=== PATIENT | male | born 1945 | race Caucasian/White ===

== ENCOUNTER 2018-04-07 05:32 | Observation (INO) | payer BC, MEDICARE ==
--- NOTE | 2018-03-27 20:18 | HP ---
HISTORY AND PHYSICAL: DATE OF ADMISSION/SURGERY: 04/07/18 DATE OF OFFICE VISIT: 03/27/18 SURGEON: Yojana Jain MD.* (DICTATED BY BHARATHI ALEXANDRA) PROCEDURE: Left total knee arthroplasty. CHIEF COMPLAINT: Left knee pain. HISTORY OF PRESENT ILLNESS: Mr. Feng is a 72-year-old gentleman with continued complaints of left knee pain. He has failed conservative treatment and elected to proceed with a left total knee arthroplasty. PAST MEDICAL HISTORY: Hiatal hernia and GERD. PAST SURGICAL HISTORY: Left shoulder surgery, cataract removal, and left knee arthroscopy x2. CURRENT MEDICATIONS: 1. Proctocare. 2. Gaviscon. ALLERGIES: No known drug allergies. FAMILY HISTORY: Denies. SOCIAL HISTORY: A 72-year-old, lives with his . Does not smoke or use drugs. Uses occasional alcohol. REVIEW OF SYSTEMS: A complete 14-point review of systems was reviewed with the patient. It was positive for GERD. He denies history of DVT, PE, hepatitis, HIV , or anesthesia problems. PHYSICAL EXAMINATION GENERAL: He is well developed, well nourished, in no acute distress. VITAL SIGNS: He stands 74 inches tall, weighs 175 pounds. Blood pressure 124/ 73, heart rate is 82. HEENT: Normocephalic, atraumatic. NECK: Supple. No palpable lymph nodes. PULMONARY: The lungs are clear to auscultation bilaterally. CARDIO: Regular rate and rhythm. Strong S1, S2. ABDOMEN: Soft, nontender, nondistended. NEUROLOGICAL: He is alert and oriented x3. MUSCULOSKELETAL: Left lower extremity: The skin is intact. There are no open wounds or abrasions. There is a [id number] joint effusion of the left knee. Range of motion is 5 to 125 degrees of flexion with significant patellofemoral crepitus. He has a 2+ dorsalis pedis pulse, intact sensation. His lower extremity muscle group strengths are intact at 5/5. ASSESSMENT AND PLAN: Mr. Feng is a 72-year-old gentleman with end-stage osteoarthritis of the left knee. He has failed conservative treatment and elected to proceed with a left total knee arthroplasty. Surgery is scheduled for 04/07/[address] Jain discussed the risks and benefits of the surgery at today's visit and all of his questions were answered. He will follow up with Dr. Jain 2 weeks after the surgery. BHARATHI ALEXANDRA [id number]/[facility] #: [id number] [facility]
[~2018-04-07 05:32] MED LIST: Buffered Lidocaine 1% SYRIN* 1 ML/SYRINGE INTRADERM ONE
[2018-04-07] MEDS ORDERED: Bupivacaine 0.5% PF 10 ML VIAL INJ ONE (05:33)
[2018-04-07] MEDS ORDERED: ceFAZolin 2 GM PREMIX in ORs 2 GM/50 ML BAG IVPB ONE (05:55)
[2018-04-07] MEDS ORDERED: Lactated Ringers 1000 ML Bag* 1,000 ML IV SCH ×2 (06:00→11:00)
[2018-04-07] MEDS ORDERED: Propofol* 10 MG/ML 20 ML BTL ONE (06:31)
[2018-04-07] MEDS ORDERED: Midazolam* 1 MG/ML 2 ML VIAL (2 MG) ONE (06:32)
[2018-04-07] MEDS ORDERED: fentaNYL* 50 MCG/ML 2 ML VIAL (100 MCG VIAL) ONE (06:32)
[2018-04-07] MEDS ORDERED: ROPIVACAINE 5 MG/ML 30 ML BTL (0.5%) ONE ×2 (06:32→07:53)
[2018-04-07] MEDS ORDERED: KETAMINE HCL* 50 MG/ML 10 ML VIAL ONE (06:32)
[2018-04-07] MEDS ORDERED: Lidocaine 2% PF * 5 ML VIAL ONE (06:32)
[2018-04-07] MEDS ORDERED: Propofol* 500 MG/50 ML BTL ONE (06:33)
[2018-04-07] MEDS ORDERED: Dexamethasone IV* 4 MG/ML 1 ML (4 MG) ONE (06:38)
[2018-04-07] MEDS ORDERED: Tranexamic Acid 1,000 MG in NS 0.9% 50 ML IV ONE (07:00)
[2018-04-07] MEDS ORDERED: Ondansetron INJ* 2 MG/ML VIAL IV PRN ×2 (09:10→10:20)
[2018-04-07] MEDS ORDERED: oxyCODONE TAB* 5 MG TAB PO PRN ×2 (09:10→10:20)
[2018-04-07] MEDS ORDERED: Acetaminophen IV 1GM/100ML * 1,000 MG/100 ML VIAL IVPB ONE (09:10)
[2018-04-07] MEDS ORDERED: Ketorolac INJ* 30 MG/ML 1 ML VIAL IV PRN (09:10)
[2018-04-07] MEDS ORDERED: Naloxone* 0.4 MG/ML 1 ML VIAL IV PRN (09:10)
[2018-04-07] MEDS ORDERED: HYDROmorphone INJ1* 1 MG/ML SYRINGE IV PRN (09:10)
[2018-04-07] MEDS ORDERED: diPHENhydraMINE IV* 50 MG/ML 1 ml VIAL (BENADRYL) IV PRN (10:20)
[2018-04-07] MEDS ORDERED: Morphine INJ* 2 MG/ML 1 ML SYRINGE (TWO MG - NEW SYRINGE VERSION) IV PRN (10:20)
[2018-04-07] MEDS ORDERED: oxyCODONE/Acetamin 5/325 MG* TAB PO PRN ×2 (10:20)
[2018-04-07] MEDS ORDERED: Magnesium Hydroxide LIQ* 30 ML UDC PO PRN (10:20)
[2018-04-07] MEDS ORDERED: Ondansetron TAB* 4 MG PO PRN (10:20)
[2018-04-07] MEDS ORDERED: Bisacodyl SUPP* 10 MG SUPP PR PRN (10:20)
[2018-04-07] MEDS ORDERED: Polyethylene Glycol 3350* 17 GM PACKET PO PRN (10:20)
[2018-04-07] MEDS ORDERED: Cyclobenzaprine TAB* 10 MG PO PRN (10:20)
[2018-04-07] MEDS ORDERED: Ketorolac INJ* 30 MG/ML 1 ML VIAL ONE (11:21)
[2018-04-07] MEDS ORDERED: Acetaminophen IV 1GM/100ML * 100 ML ONE (11:21)
[2018-04-07] MEDS ORDERED: oxyCODONE TAB* 5 MG TAB ONE (12:58)
[2018-04-07] MEDS: ceFAZolin 1 GM ADVAN(*) 1 GM in NS 0.9% 50 ML* 50 ML IVPB SCH ×2 (16:14→23:58)
[2018-04-07] MEDS: Acetaminophen TAB* 325 MG PO SCH (19:52)
[2018-04-07] MEDS: Docusate CAP* 100 MG PO SCH (22:05)
[2018-04-07] MEDS: Magnesium Hydroxide LIQ* 30 ML UDC PO SCH (22:37)
--- NOTE | 2018-04-07 23:00 | OP ---
DATE OF OPERATION: 04/07/18 - ROOM #341 DATE OF : 47 ATTENDING SURGEON: Yojana Jain MD COLLECTION TEAM LEAD: BHARATHI Timmons. Ms. Skaggs did help throughout the procedure with preparation of the leg, wound retraction, manipulation of the knee, and wound closure. ANESTHESIOLOGIST: Dr. Bernal. ANESTHESIA: Spinal. PRE-OP DIAGNOSIS: Severe end-stage degenerative osteoarthritis of the left knee joint. POST-OP DIAGNOSIS: Severe end-stage degenerative osteoarthritis of the left knee joint. OPERATIVE PROCEDURE: Left total knee arthroplasty. TOURNIQUET TIME: 53 minutes. COMPLICATIONS: None. ESTIMATED BLOOD LOSS: 200 cc. SPECIMEN: Bone and cartilage from the left knee joint sent to pathology. HARDWARE USED: This is cemented [employer] total knee arthroplasty hardware. Two packages of Simplex bone cement. For the femur, a left size 7 posterior stabilized Legion femoral component. For the tibia, a left size 7 Mirna II tibial baseplate. For the insert, a 9-mm posterior stabilized articular insert, size 7/8. For the patella, a size 38 3-peg all poly patella. BRIEF HISTORY/INDICATION: Mr. Feng is a 72-year-old gentleman with 6 months of significant left knee pain. Radiographs including x-ray and MRI confirmed significant arthritis in the knee. He failed conservative treatment with antiinflammatories, pain medication, intraarticular injection, and physical therapy. Due to continued pain and decreased quality of life, he elected to undergo left total knee arthroplasty. Informed consent was obtained from the patient. He understood the risk of surgery included but were not limited to bleeding, infection, damage to nearby structures, continued pain, need for further surgery, intraoperative fracture, nerve palsy, hardware failure or loosening, knee stiffness, loss of motion, stroke, heart attack, blood clot, and . He wished to proceed. INTRAOPERATIVE FINDINGS: Intraoperatively, the patient was noted to have significant cartilage loss in all three compartments with exposed subchondral bone. DESCRIPTION OF PROCEDURE: Mr. Feng was identified in the preanesthesia unit. His left lower extremity was marked as the correct operative site. Informed consent was signed and placed in the chart. The patient's left lower extremity was marked as the correct operative site. He was taken to the operating room and placed under anesthesia without complication. A Zapata catheter was placed. Tourniquet was placed on the left thigh. Left lower extremity was prepped and draped in the usual sterile fashion. Preop time-out was made to correctly identify the patient, side, and site. Appropriate perioperative antibiotics were given within 1 hour of incision. Tourniquet was inflated and the total tourniquet time for this procedure was 53 minutes. A midline incision was made with a 10-blade and carried down to the extensor mechanism. A new 10-blade was used to make a standard medial parapatellar arthrotomy. Patella was subluxed laterally. Electrocautery was used to subperiosteally elevate the soft tissue off the superomedial tibia to the mid sagittal plane. The knee was flexed up. The anterior horn of the lateral meniscus and ACL were sharply released. A drill was used to enter the distal femur. Intramedullary distal femoral cutting guide was pinned on the distal femur. Oscillating saw was used to make the distal femoral cut. Next, the external rotation guide was pinned on the distal femur. The distal femur was sized to a size 7. Size 7 multi-cutting jig was pinned on the distal femur. Oscillating saw was used to make the appropriate 4 chamfer cuts. Next, the PCL was completely released. Extramedullary tibial cutting guide was pinned on the proximal tibia. The oscillating saw was used to make the proximal tibial cut perpendicular to the mechanical axis of the tibia. The bone was carefully removed. The knee was brought out into full extension. Medial and lateral ligaments were well balanced. Flexion and extension gaps were well balanced. The knee was flexed up. A Lamina credentialer was placed both medially and laterally. Any remaining meniscus was carefully removed using electrocautery. Curved osteotome was used to remove any posterior osteophytes. Tibial tray and drop ramya were placed and once again confirmed a satisfactory tibial cut. A size 7 left femoral trial was impacted onto the distal femur. This trial had excellent fit and stability. The box for the posterior stabilized implant was prepared using a reamer and box cut osteotome. A size 7 tibial trial with a 9-mm insert trial was placed and the knee was taken through range of motion. The knee had full extension to 130 degrees of flexion with satisfactory patellofemoral traction. The patella was everted. A 9-mm of patellar bone and cartilage was carefully removed using an oscillating saw. The patella was sized to a size 38. Three peg holes were drilled through the size 38 guide. A 38 trial patella was placed and the knee was taken through range of motion. There was satisfactory patellofemoral tracking. All trials were removed. The tibia was subluxed anteriorly and sized to a size 7. Proximal tibia was prepared using a size 7 keel punch. All bony cut surfaces were copiously irrigated with sterile saline and dried. Final implants were cemented into place starting with the tibia, followed by the femur, and lastly the patella. A 9-mm insert trial was placed and the knee was taken through range of motion. The knee was brought into full extension. Tourniquet was turned down at 53 minutes. The knee was copiously irrigated with sterile saline. Electrocautery was used to obtain meticulous hemostasis. Once the cement had fully cured, the insert trial was removed. Any excess cement was removed from around the capsule and hardware. Final insert chosen was a size 7/ 8, 9-mm posterior stabilized articular insert, locked into position on the tibial tray. Stability of the insert was checked and rechecked and noted to be stable. The extensor mechanism was closed using interrupted #1 Vicryls. The rest of the incision was closed in a layered fashion using 0 and 2-0 Vicryls. Skin was closed using running 3-0 nylon suture. Sterile Xeroform, 4x4s, and Webril were used to cover the incision. Navin wrap and cold pack were placed over this. The patient's anesthesia was reversed without difficulty. He was taken to the PACU in stable condition. Intended weightbearing will be weightbearing as tolerated. Intended DVT prophylaxis will be Eliquis. [id number]/[facility] #: [id number] [facility] HOSPITALGris
[2018-04-08] MEDS: traMADol TAB* 50 MG PO PRN ×3 (00:02→12:12)
[2018-04-08] MEDS: Acetaminophen TAB* 325 MG PO SCH ×2 (03:23→12:11)
[2018-04-08 07:07] LABS: Hematocrit 36 % (42-52); Hemoglobin 12.5 g/dl (14.0-18.0); Mean Platelet Volume 9.8 fL (7.4-10.4); Platelet Count 141 10^3/ul (150-450)
[2018-04-08 07:24] LABS: BUN/Creatinine Ratio 20.8 (8-20); Calcium 8.7 mg/dL (8.6-10.3); EGFR African American 93.4 (>60); EGFR Non-African American 77.2 (>60); Potassium 4.4 mmol/L (3.5-5.0)
[2018-04-08] MEDS: ceFAZolin 1 GM ADVAN(*) 1 GM in NS 0.9% 50 ML* 50 ML IVPB SCH (08:06)
[2018-04-08] MEDS ORDERED: Apixaban* 2.5 MG TAB PO SCH (09:00)
--- NOTE | 2018-04-08 09:31 | PN ---
Progress Note - Progress Note Date of Service: 04/08/18 SOAP: Subjective: []Pt seen and examined at bedside. He feels very well and desires DC home. His knee pain is well controlled. Denies CP, SOB, dizziness, nausea, hx dvt. Objective: []General: Well appearing, NAD LLE: Left knee dressing CDI, cryo cuf in use, thigh soft, df/pf intact, sensation intact to light touch distally, DP2+, cap refill less than two seconds distally Calves supple and nontender without erythema, edema or palpable cords Assessment: []POD [address] Plan: []WBAT PT/OT eliquis 2.5 mg po BID x 30 days DC to home today as long as PT goals met. Will change dressing prior to DC Vital Signs Temp 98.3 F 04/08/18 07:33 Pulse 56 04/08/18 07:33 Resp 18 04/08/18 07:38 BP 128/63 04/08/18 07:33 Pulse Ox 100 04/08/18 07:33 Intake & Output 04/07/18 04/08/18 04/08/18 18:59 06:59 18:59 Intake Total 1000 2012 1502 Output Total 550 850 Balance 450 1162 1502 Intake: IV Fluids 1000 997 852 ABX - CEFAZOLIN 53 LR 1000 944 852 IVPB 50 ABX - CEFAZOLIN 50 Oral 1015 600 Output: Urine 300 Zapata 550 550 Laboratory Last Values Hgb 12.5 g/dl (14.0-18.0) L 04/08/18 06:50 Hct 36 % (42-52) L 04/08/18 06:50 Plt Count 141 10^3/ul (150-450) L 04/08/18 06:50 MPV 9.8 fL (7.4-10.4) 04/08/18 06:50 Sodium 137 mmol/L (135-145) 04/08/18 06:50 Potassium 4.4 mmol/L (3.5-5.0) 04/08/18 06:50 Chloride 106 mmol/L (101-111) 04/08/18 06:50 Carbon Dioxide 27 mmol/L (22-32) 04/08/18 06:50 Anion Gap 4 mmol/L (2-11) 04/08/18 06:50 BUN 20 mg/dL (6-24) 04/08/18 06:50 Creatinine 0.96 mg/dL (0.67-1.17) 04/08/18 06:50 Est GFR ( Amer) 93.4 (>60) 04/08/18 06:50 Est GFR (Non-Af Amer) 77.2 (>60) 04/08/18 06:50 BUN/Creatinine Ratio 20.8 (8-20) H 04/08/18 06:50 Glucose 107 mg/dL (70-100) H 04/08/18 06:50 Calcium 8.7 mg/dL (8.6-10.3) 04/08/18 06:50
[2018-04-08] MEDS: Magnesium Hydroxide LIQ* 30 ML UDC PO SCH (09:54)
[2018-04-08] MEDS: Docusate CAP* 100 MG PO SCH (09:54)
[2018-04-08 14:03] VITALS: BP 123/63
--- NOTE | 2018-04-08 15:04 | DS ---
AMENDED REPORT NOW INCLUDES COSIGNER DESIGNATION AND DATE OF DISCHARGE DISCHARGE SUMMARY: DATE OF ADMISSION: 04/07/18 DATE OF DISCHARGE: 04/08/18 PROVIDER: Dr. Yojana Jain.* (DICTATED BY BHARATHI PAUL) PREOPERATIVE DIAGNOSIS: Severe end-stage degenerative osteoarthritis of the left knee joint. OPERATIVE PROCEDURE: Left total knee arthroplasty. HISTORY: Mr. Feng is a 72-year-old gentleman with 6 months of significant left knee pain. Radiographs show significant arthritis of the left knee. He failed conservative management and elected to undergo a left total knee arthroplasty. HOSPITAL COURSE: The patient was admitted to [facility] on . He underwent a left total knee arthroplasty without complication. Postop day 1, he was well appearing, in no acute distress. Left knee dressing was changed. Incision clean, dry, and intact. Anterior escobedo with mild abrasions without any drainage or erythema. Antibiotic ointment was applied with Band- Aids over top. Dorsiflexion and plantarflexion intact. Sensation intact to light touch distally. DP pulse 2+. Vital Signs: Temperature 98.3, pulse 56, respiratory rate 18, blood pressure 120/63, pulse ox 100%. Hemoglobin 12.5, hematocrit 36. Sodium 137, potassium 4.4. The patient was deemed to be medically and orthopedically stable for discharge home. DISCHARGE MEDICATIONS: 1. Gaviscon 80/14.2 b.i.d. p.r.n. 2. Acetaminophen 975 q.8 p.r.n. 3. Eliquis 2.5 mg p.o. b.i.d. for 30 days. 4. Docusate 100 mg p.o. b.i.d. for constipation p.r.n. 5. Tramadol 50 mg 1 to 2 tabs every 6 hours as needed for pain, max daily dose of 8. DISCHARGE PLAN: Weightbearing as tolerated. Discharge to home. Antibiotic and Band-Aid to abrasions on escobedo until healed. Okay to shower postop day 3, change knee dressing daily with dry gauze and Navin wrap. Eliquis 2.5 mg twice daily for 1 month for DVT prophylaxis. Pain control with tramadol 50 mg 1 to 2 tabs every 6 hours as needed for pain, max of 8 tabs per day. Follow up with Dr. Jain in 10 to 14 days. BHARATHI MANCIA [id number]/[facility] #: [id number] [facility] CENTERGris
== END 2018-04-08 15:23 | disposition home or self-care (01) ==
LOC: OR 05:32 → SSU 14:18
PROVIDERS: ADMIT Orthopaedic Surgery Adult Reconstructive Orthopaedic Surgery; ATTEND Orthopaedic Surgery Adult Reconstructive Orthopaedic Surgery
DX: M17.12 Unilateral primary osteoarthritis, left knee (principal); M25.562 Pain in left knee; K21.9 Gastro-esophageal reflux disease without esophagitis; K44.9 Diaphragmatic hernia without obstruction or gangrene
CPT/HCPCS: 36415; 80048; 85014; 85018; 85049; 90686; 96374; A9270-GY; C1776; G0378; J0690; J1100; J1885; J2250; J2704; J2795; J3010

== ENCOUNTER 2018-04-11 15:10 | Inpatient (IN) | payer MEDICARE, BC ==
--- OUTSIDE RECORDS SUMMARY | 2018-04-11 15:25 | XMS REPORT | Continuity of Care Document ---
:1945 External Reference #:[id number] Author Name Irma Monson Care Team Providers Name Role Phone Joe Vallejo MD Primary Care Physician Unavailable Payers Type Date Identification Numbers Payment Provider Subscriber Policy Number: [id number] BS Fep William Francois Group Number: [id number] [address] Group Name: [id number] [place] [address] PayID: [id number] Advance Directives Description No Information Available Problems Date Description Provider Status Onset: 05/23/2010 Hyperlipidemia Joe Vallejo M.D. Active Onset: 12/15/2012 Gastroesophageal reflux disease Joe Vallejo M.D. Active Onset: 12/15/2012 Chest pain Joe Vallejo M.D. Active Onset: 12/30/2012 Electrocardiogram abnormal Gabriel Raymond M.D. Onset: 01/25/2014 Impacted cerumen Joe Vallejo M.D. Active Onset: 07/04/2014 Headache Joe Vallejo M.D. Active Onset: 07/04/2014 Infectious mononucleosis Joe Vallejo M.D. Active Onset: 12/08/2017 Localized, primary osteoarthritis Yojana Jain M.D. 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 movement Gaviscon Active Chewtabs 80-14.2mg 30unit one tab Unknown 000 s prn Proctofoam HC Hx Foam 1-1% 1units apply K64.0 [place] 015 - daily P[place]ikara, after M.D. 015 bowel movement x 10 days Omeprazole Hx Capsules 20mg 30caps 1 po qd am 530.81 Joe 013 - DR empty [place], stomach M.D. 014 Pain Reliever Hx Tablets 25-500mg Unknown PM Extra 000 - Strength 018 Medications Administered in Office Medication Date Status Form Strength Qnty SIG Indications Ordering Provider Depomedrol Administered Injection Yojana 40MG 018 Jailyn Jain Immunizations CPT Code Status Date Vaccine Lot # [id number] Given 04/11/2016 Pneumococcal Conjugate Vaccine 13 Valent For [id number] Intramuscular Use 36904 Given 01/31/2015 Influenza Virus Vaccine, Quadrivalent, Split, [id number] Preservative Free 55061 Given 01/26/2013 Zoster (Zostavax) [id number] 10447 Given 01/26/2013 Pneumonia Vaccine [id number] 45463 Given 12/15/2012 Flu Vaccine Split Virus Preservative Free For [id number] Indiv 3Yr Older 12280 Given 09/04/2010 Tdap - Tetanus/Diptheria/Acellular Pertussis [id number] Vital Signs Date Vital Result Comment 03/24/2018 10:15am Height 74 inches 6'2" Weight 171.00 lb Heart Rate 73 /min BP Systolic Sitting 130 mmHg BP Diastolic Sitting 76 mmHg O2 % BldC Oximetry 97 % BMI (Body Mass Index) 22.0 kg/m2 02/18/2018 11:39am Height 74 inches 6'2" Weight 175.00 lb BP Systolic 122 mmHg BP Diastolic 69 mmHg Respiratory Rate 16 /min Pain Level 3 BMI (Body Mass Index) 22.5 kg/m2 01/19/2018 11:36am Height 74 inches 6'2" Heart Rate 64 /min BP Systolic 126 mmHg BP Diastolic 70 mmHg Body Temperature 98.2 F Pain Level 4 12/19/2017 3:18pm Height 74 inches 6'2" Weight 174.00 lb Heart Rate 77 /min Respiratory Rate 17 /min Pain Level 5 BMI (Body Mass Index) 22.3 kg/m2 12/08/2017 2:42pm Height 74 inches 6'2" Weight 174.50 lb Heart Rate 74 /min BP Systolic 128 mmHg BP Diastolic 68 mmHg Respiratory Rate 18 /min Body Temperature 97.6 F Pain Level 8 BMI (Body Mass Index) 22.4 kg/m2 11/24/2017 1:04pm Height 74 inches 6'2" Weight 176.00 lb Heart Rate 74 /min BP Systolic 140 mmHg BP Diastolic 80 mmHg O2 % BldC Oximetry 98 % BMI (Body Mass Index) 22.6 kg/m2 05/05/2017 4:40pm Height 74 inches 6'2" Weight 176.00 lb Heart Rate 80 /min BP Systolic 140 mmHg BP Diastolic 80 mmHg Body Temperature 98.4 F O2 % BldC Oximetry 98 % BMI (Body Mass Index) 22.6 kg/m2 04/11/2016 9:11am Height 74 inches 6'2" Weight 179.00 lb Heart Rate 72 /min BP Systolic Sitting 142 mmHg BP Diastolic Sitting 72 mmHg Body Temperature 96.4 F O2 % BldC Oximetry 99 % BMI (Body Mass Index) 23.0 kg/m2 02/14/2015 8:09am Height 74 inches 6'2" Weight 171.38 lb Heart Rate 70 /min BP Systolic Sitting 122 mmHg BP Diastolic Sitting 70 mmHg Body Temperature 95.9 F O2 % BldC Oximetry 98 % BMI (Body Mass Index) 22.0 kg/m2 01/31/2015 9:59am Height 74 inches 6'2" Weight 173.00 lb Heart Rate 80 /min BP Systolic Sitting 145 mmHg BP Diastolic Sitting 78 mmHg Body Temperature 97.6 F O2 % BldC Oximetry 98 % BMI (Body Mass Index) 22.2 kg/m2 07/04/2014 1:53pm Height 73.5 inches 6'1.50" Weight 174.25 lb Heart Rate 76 /min BP Systolic Sitting 158 mmHg BP Diastolic Sitting 80 mmHg Body Temperature 98.7 F O2 % BldC Oximetry 98 % BMI (Body Mass Index) 22.7 kg/m2 01/25/2014 8:51am Height 73.5 inches 6'1.50" Weight 173.00 lb Heart Rate 78 /min BP Systolic Sitting 118 mmHg BP Diastolic Sitting 70 mmHg BMI (Body Mass Index) 22.5 kg/m2 01/26/2013 9:23am Height 73.5 inches 6'1.50" Weight 177.00 lb Heart Rate 88 /min BP Systolic Sitting 128 mmHg BP Diastolic Sitting 82 mmHg BMI (Body Mass Index) 23.0 kg/m2 12/15/2012 1:06pm Height 73.5 inches 6'1.50" Weight 179.00 lb Heart Rate 100 /min BP Systolic Sitting 136 mmHg BP Diastolic Sitting 78 mmHg BMI (Body Mass Index) 23.3 kg/m2 09/04/2010 1:01pm Height 73.25 inches 6'1.25" Weight 175.00 lb Heart Rate 80 /min BP Systolic Sitting 120 mmHg BP Diastolic Sitting 76 mmHg BMI (Body Mass Index) 22.9 kg/m2 05/16/2010 2:03pm Height 73.25 inches 6'1.25" Weight 183.00 lb Heart Rate 76 /min BP Systolic 118 mmHg BP Diastolic 78 mmHg BMI (Body Mass Index) 24.0 kg/m2 Results Test Date Facility Test Result H/L Range Note Lipid Profile 04/04/2017 [facility] Triglycerides 144 mg/dL 1, 2 (Trig/Chol/HDL) [address] [place] [address] [phone] Cholesterol 195 mg/dL 3 HDL Cholesterol 46.5 mg/dL 4 LDL Cholesterol 120 mg/dL 5 Laboratory test 04/04/2017 [facility] Glucose 94 mg/dL N 70- 100 [address] [place] [address] [phone] Laboratory test 05/08/2016 [facility] Surgical Pathology SEE RESULT [address] [place] [address] [phone] Lipid Profile 04/04/2016 [facility] Triglycerides 67 mg/dL N 8 (Trig/Chol/HDL) [address] [place] [address] [phone] Cholesterol 188 mg/dL N 9 HDL Cholesterol 49.7 mg/dL N 10 LDL Cholesterol 125 mg/dL N 11 Laboratory test 04/04/2016 [facility] Glucose 93 mg/dL N 70- 100 [address] [place] [address] [phone] Lipid Profile 01/25/2015 [facility] Triglycerides 91 mg/dL N 13 (Trig/Chol/HDL) [address] [place] [address] [phone] Cholesterol 196 mg/dL N 14 HDL Cholesterol 52.4 mg/dL N 15 LDL Cholesterol 125 mg/dL N 16 Laboratory test 01/25/2015 [facility] Glucose 84 mg/dL N 70- [address] [place] [address] [phone] Laboratory test 07/04/2014 [facility] Erythrocyte Sed 10 mm/Hr N 0-40 [address] [place] [address] [phone] CBC Auto Diff 07/04/2014 [facility] White Blood 6.6 N 4.8- 10.[address] Count 10^3/[place] [address] [phone] Red Blood Count 4.83 10^6/uL N 4.0-5.4 Hemoglobin 14.9 g/dL N 14.0-18.0 Hematocrit 44 % N 42-52 Mean Corpuscular Volume 90 fL N 80-94 Mean Corpuscular Hemoglobin 31 pg N 27-31 Mean Corpuscular HGB Conc 34 g/dL N 31-36 Red Cell Distribution Width 13 % N 10.5-15 Platelet Count 159 10^3/uL N 150-450 Mean Platelet Volume 10 um3 N 7.4-10.4 Abs Neutrophils 4.1 10^3/uL N 1.5-7.7 Abs Lymphocytes 1.4 10^3/uL N 1.0-4.8 Abs Monocytes 0.7 10^3/uL N 0-0.8 Abs Eosinophils 0.3 10^3/uL N 0-0.6 Abs Basophils 0 10^3/uL N 0-0.2 Abs Nucleated RBC 0 10^3/uL N Granulocyte % 62.9 % N 38-83 Lymphocyte % 20.9 % Low 25-47 Monocyte % 10.5 % High 1-9 Eosinophil % 5.1 % N 0-6 Basophil % 0.6 % N 0-2 Nucleated Red Blood Cells % 0 N Laboratory test 07/04/2014 [facility] Monospot Negative N Negative 18 finding [address] [place] [address] [phone] Laboratory test 02/04/2014 [facility] PSA Screening 1.591 ng/mL N 0-4.000 19 finding [address] [place] [address] [phone] Lipid Profile 01/21/2014 [facility] Triglycerides 101 mg/dL N 20 (Trig/Chol/HDL) [address] [place] [address] [phone] Cholesterol 196 mg/dL N 21 HDL Cholesterol 55.0 mg/dL N 22 LDL Cholesterol 121 mg/dL N 23 Comp Metabolic Panel 01/21/2014 [facility] Sodium 138 mmol/L N 133-145 [address] [place] [address] [phone] Potassium 4.7 mmol/L N 3.5-5.0 24 Chloride 103 mmol/L N 101-111 Co2 Carbon Dioxide 30 mmol/L N 22-32 Anion Gap 5 mmol/L N 2-11 Glucose 80 mg/dL N 70-100 Blood Urea Nitrogen 16 mg/dL N 6-24 Creatinine 1.07 mg/dL N 0.67-1.17 BUN/Creatinine Ratio 15.0 N 8-20 Calcium 9.1 mg/dL N 8.6-10.3 Total Protein 6.8 g/dL N 6.4-8.9 Albumin 4.3 g/dL N 3.2-5.2 Globulin 2.5 g/dL N 2-4 Albumin/Globulin Ratio 1.7 N 1-3 Total Bilirubin 0.70 mg/dL N 0.2-1.0 Alkaline Phosphatase 54 U/L N 34-104 Alt 9 U/L N 7-52 Ast 17 U/L N 13-39 Egfr Non- 68.9 N >60 Egfr 88.7 N >60 25 Comp Metabolic Panel 01/22/2013 [facility] Sodium 141 mmol/L 133-145 [address] [place] [address] [phone] Potassium 5.1 mmol/L High 3.5-5.0 Chloride 105 mmol/L 101-111 Co2 Carbon Dioxide 33.0 mmol/L High 22-32 Anion Gap 3.0 mmol/L 2-11 Glucose 91 mg/dL 70-100 Blood Urea Nitrogen 14 mg/dL 6-24 Creatinine 1.10 mg/dL 0.50-1.40 BUN/Creatinine Ratio 12.7 8-20 Calcium 9.3 mg/dL 8.1-9.9 Total Protein 6.3 g/dL 6.2-8.1 Albumin 4.3 g/dL 3.2-5.2 Globulin 2.0 g/dL 2-4 Albumin/Globulin Ratio 2.2 1-3 Total Bilirubin 0.9 mg/dL 0.4-1.5 Alkaline Phosphatase 54 U/L 30-110 Alt 19 U/L 14-54 Ast 23 U/L 12-42 Egfr Non- 67.0 >60 Egfr 86.1 >60 26 Lipid Profile 01/22/2013 [facility] Triglycerides 69 mg/dL 40 -200 (Trig/Chol/HDL) [address] [place] [address] [phone] Cholesterol 220 mg/dL High Less than 200 HDL Cholesterol 58 mg/dL 40-60 27 Cholesterol/HDL Ratio 3.8 Average 1-4.44 LDL Cholesterol 148.2 High Less Than 100 28 Laboratory test 01/22/2013 [facility] PSA Screening 2.001 ng/mL 0-4.000 29 finding [address] [place] [address] [phone] Lipid Profile 07/09/2010 [facility] Triglyceride 60 mg/dL 40- 200 (Trig/Chol/HDL) [address] [place] [address] [phone] Cholesterol 205 mg/dL High Less Than 200 30 High Density Lipoprotein 58 mg/dL 40-60 31 Cholesterol/HDL Ratio 3.53 AVERAGE 1-4.97 Low Density Lipoprotein 135 mg/dL High Less Than 100 32 Surgical 06/11/2010 [facility] Surgical 33 Pathology 101 [facility] Pathology <SEE NOTE> [place] [address] [phone] Laboratory 05/22/2010 [facility] PSA Screening 1.24 NG/ML 0- 4 34 test finding [address] [place] [address] [phone] Lipid Profile 05/22/2010 [facility] Triglyceride 124 mg/dL 40 - (Trig/Chol/HDL [address] [place] [address] [phone] Cholesterol 213 mg/dL High Less Than 200 35 High Density Lipoprotein 54 mg/dL 40-60 36 Cholesterol/HDL Ratio 3.94 AVERAGE 1-4.97 Low Density Lipoprotein 134 mg/dL High Less Than 100 37 Comp Metabolic Panel 05/22/2010 [facility] Sodium 137 mmol/L 135-[address] [place] [address] [phone] Potassium 4.7 mmol/L 3.5-5.0 Chloride 104 mmol/L 101-111 Co2 (Carbon Dioxide) 29.0 mmol/L 22-32 Anion Gap 4.0 mmol/L 2-11 38 Glucose 95 mg/dL 70-100 BUN 14 mg/dL 6-24 Creatinine 1.10 mg/dL 0.50-1.40 One Over Creatinine 0.90 BUN/Creatinine Ratio 12.7 8-20 Calcium 9.0 mg/dL 8.1-9.9 Total Protein 6.6 GM/DL 6.2-8.1 Albumin 4.2 GM/DL 3.2-5.2 Globulin 2.4 GM/DL 2-4 Albumin/Globulin Ratio 1.8 1-3 Bilirubin Total 1.0 mg/dL 0.4-1.5 39 Alkaline Phosphatase 60 U/L 39-117 Alt (SGPT) 13 U/L Low 17-63 Ast (Sgot) 18 U/L 12-42 eGFR Non- 67.6 > 60 eGFR 86.9 > 60 40 CBC Auto Diff 05/22/2010 [facility] White Blood 7.5 CUMM 4.8- 10.[address] [place] [address] [phone] Red Cell Count 5.00 CUMM 4.6-6.2 Hemoglobin 15.5 g/dL 14.0-18.0 Hematocrit 45 % 42-52 Mean Corpuscular Volume 90 um3 80-94 Mean Corpuscular Hemoglob 31 pg 27-31 Mean Corpuscular HGB Cone 34 g/dL 32-36 Redcell Distribution WDTH 13 % 10.5-15 Platelet Count 158 CUMM 150-450 Mean Platelet Volume 11.0 um3 High 7.4-10.4 Gran % 58.5 % 38-83 Lymph % 25.9 % 25-47 Mononuclear % 9.0 % 1-9 Eosinophil % 6.0 % 0-6 Basophil % 0.6 % 0-2 Abs Lymphs 1.9 1.0-4.8 Abs Mononuclear 0.7 0-0.8 Absolute Neutrophil Count 4.4 1.5-7.7 Abs Eosinophils 0.4 0-0.6 Abs Basophils 0 0-0.2 1 FASTING 10 HOUR 2 Desirable: <150 Borderline High: 150-199 High: 200-499 Very High: >500 3 Desirable: <200 Borderline High: 200-239 High: >239 4 Low: <40 Desirable: 40-60 High: >60 5 Desirable: <100 Near Optimal: 100-129 Borderline High: 130-159 High: 160-189 Very High: >189 6 FASTING 10 HOUR 7 SEE RESULT BELOW Name: WILLIAM FRANCOIS : [address]: Renato Diaz MD Acct: [id number] Unit: [id number] AGE: 70 Location: ENDO Re05/08/16 SEX: M Status: DEP REF SPEC: [id number] NIGEL: 05/08/16- SUBM DR: Renato Diaz MD REQ: [id number] RECD: 05/08/16-1040 STATUS: TOYIN CORRIGAN DR: Joe Vallejo MD _ ORDERED: LEVEL IV FINAL DIAGNOSIS Colon, transverse, biopsy: -- Tubular adenoma. -- No high grade dysplasia or malignancy. CLINICAL HISTORY History of colon polyp. POST-OPERATIVE DIAGNOSIS Colonoscopy into terminal ilium, prep good - small transverse colon polyp removed. Conclusions/Plan: Small polyp removed GROSS DESCRIPTION The specimen is received in formalin labeled, Transverse Colon Polyp, and consists of two ferreira irregular soft tissue fragments aggregating 0.3 x 0.2 x 0.1 cm, which are submitted entirely in one cassette. Signed (signature on file) Young King MD 1205 END OF REPORT * ML=Testing performed at Main Lab DEPARTMENT OF PATHOLOGY, [address] [place] [address] Young King M[address] Director [facility] # [id number] Desirable <150 Borderline high 150-199 High 200-499 Very High >500 9 Desirable <200 Borderline high 200-239 High >239 10 Low <40 Desirable: 40-60 High: >60 11 Desirable: <100 mg/dL Near Optimal: 100-129 mg/dL Borderline High: 130-159 mg/dL High: 160-189 mg/dL Very High: >189 mg/dL 12 FASTING 10 HOUR 13 Desirable <150 Borderline high 150-199 High 200-499 Very High >500 14 Desirable <200 Borderline high 200-239 High >239 15 Low <40 Desirable: 40-60 High: >60 16 Desirable: <100 mg/dL Near Optimal: 100-129 mg/dL Borderline High: 130-159 mg/dL High: 160-189 mg/dL Very High: >189 mg/dL 17 N 18 N 19 Serum levels of PSA measured using the [employer] DXI Hybritech immunoassay should not be interpreted as absolute evidence of the presence or absence of disease. The PSA value should be used in conjunction with other pertinent clinical diagnostic procedures. The values obtained with different assay methods or kits cannot be used interchangeably. 20 Desirable <150 Borderline high 150-199 High 200-499 Very High >500 21 Desirable <200 Borderline high 200-239 High >239 22 Low <40 Desirable: 40-60 High: >60 23 Desirable <100 Near Optimal 100-129 Borderline high 130-159 High 160-189 Very High >189 24 Potassium reference range changed effective 01/02/14 25 Because ethnic data is not always readily available, this report includes an eGFR for both -Americans and non- Americans. The National Kidney Disease Education Program (NKDEP) does not endorse the use of the MDRD equation for patients that are not between the ages of 18 and 70, are , have extremes of body size, muscle mass, or nutritional status, or are non- or non-. According to the National Kidney Foundation, irrespective of diagnosis, the stage of the disease is based on the level of kidney function: Stage Description GFR(mL/min/1.73 m(2)) 1 Kidney damage with normal or decreased GFR 90 2 Kidney damage with mild decrease in GFR 60-89 3 Moderate decrease in GFR 30-59 4 Severe decrease in GFR 15-29 5 Kidney failure <15 (or dialysis) 26 Because ethnic data is not always readily available, this report includes an eGFR for both -Americans and non- Americans. The National Kidney Disease Education Program (NKDEP) does not endorse the use of the MDRD equation for patients that are not between the ages of 18 and 70, are , have extremes of body size, muscle mass, or nutritional status, or are non- or non-. According to the National Kidney Foundation, irrespective of diagnosis, the stage of the disease is based on the level of kidney function: Stage Description GFR(mL/min/1.73 m(2)) 1 Kidney damage with normal or decreased GFR 90 2 Kidney damage with mild decrease in GFR 60-89 3 Moderate decrease in GFR 30-59 4 Severe decrease in GFR 15-29 5 Kidney failure <15 (or dialysis) 27 HDL Interpretation: Undesirable: High Risk: Less than 40 mg/dL Desirable: Low Risk: Greater than 60 mg/dL 28 LDL Interpretation: Low Risk Optimal Level: LDL Less than 100 mg/dL Near or Above Optimal: LDL 100-129 mg/dL Borderline High Risk: LDL 130-159 mg/dL High Risk: LDL 160-189 mg/dL Very High Risk: LDL Greater than 189 mg/dL 29 Serum levels of PSA measured using the [employer] DXI Hybritech immunoassay should not be interpreted as absolute evidence of the presence or absence of disease. The PSA value should be used in conjunction with other pertinent clinical diagnostic procedures. The values obtained with different assay methods or kits cannot be used interchangeably. 30 CHOLESTEROL INTERPRETATION: Desirable: Less than 200 MG/DL Borderline-High Risk: 200-239 MG/DL High-Risk: 240 MG/DL and over 31 HDL INTERPRETATION: Undesirable: High Risk: Less than 40 MG/DL Desirable: Low Risk: Greater than 60 MG/DL 32 LDL INTERPRETATION: Low Risk Optimal Level: LDL Less than 100 MG/DL Near or Above Optimal: LDL 100-129 MG/DL Borderline High Risk: LDL 130-159 MG/DL High Risk: LDL 160-189 MG/DL Very High Risk: LDL Greater than 189 MG/DL 33 ---- RUN DATE: 06/12/10 [facility] NMI LIVE PAGE 1 RUN TIME: 1515 Specimen Inquiry RUN USER: INTERFACE -- Name: WILLIAM FRANCOIS Status: REG REF Re06/11/10 Age/Sex: 64/M Unit#: [id number] Location: END : 46 -- Specimen: [id number] Spec Date: 06/11/[address]: Renato rich MD Spec Type: SURGICAL P Received: 06/11/10-6868 Copies to: Joe giron MD SPECIMEN 1) RIGHT COLON POLYPS 2) BIOPSY TRANSVERSE COLON HISTORY POST-OP DIAGNOSIS: Colonoscopy to terminal ileum, prep good - 4 small ethan yps, 3 in right colon, one in transverse colon CLINICAL INFORMATION: Screening colonoscopy GROSS DESCRIPTION 1) The specimen is received in formalin labelled [facility], Right Colon Polyps, and consists of multiple ferreira, soft tissue fragments measuring 1.3 x 0.3 x 0.2 cm. in aggregate. Submitted entirely, one cassette. 2) The specimen is received in formalin labelled [facility], Biopsy Transverse Colon, and consists of a ferreira, soft tissue fragment measuring 0.3 x 0.2 x 0.2 cm. Submitted entirely, one cassette. DIAGNOSIS 1) Colon, right, biopsies: A. Tubular adenoma. B. No high grade dysplasia or malignancy. 2) Colon, transverse, biopsies: A. Tubular adenoma. B. No high grade dysplasia or malignancy. Signed Electronically by: YOUNG KING MD 06/12/10 1511 -- -- DEPARTMENT OF PATHOLOGY, [address] [place] [address] [facility] Permit #[id number] Young King M.D. Director Franck Rodriguez M.D. Furnace Setter Dir caity -- 34 * SERUM LEVELS OF PSA MEASURED USING THE BIBI [employer] ACCESS HYBRITECH IMMUNOASSAY SHOULD NOT BE INTERPRETED ABSOLUTE EVIDENCE OF THE PRESENCE OR ABSENCE OF DISEASE. THE PSA VALUE SHOULD BE USED IN CONJUNCTION WITH OTHER PERTINENT CLINICAL DIAGNOSTIC PROCEDURES. 35 CHOLESTEROL INTERPRETATION: Desirable: Less than 200 MG/DL Borderline-High Risk: 200-239 MG/DL High-Risk: 240 MG/DL and over 36 HDL INTERPRETATION: Undesirable: High Risk: Less than 40 MG/DL Desirable: Low Risk: Greater than 60 MG/DL 37 LDL INTERPRETATION: Low Risk Optimal Level: LDL Less than 100 MG/DL Near or Above Optimal: LDL 100-129 MG/DL Borderline High Risk: LDL 130-159 MG/DL High Risk: LDL 160-189 MG/DL Very High Risk: LDL Greater than 189 MG/DL 38 Anion gap measurement may be of limited value in the presence of any alkalosis, especially in a combined acid base disorder. . 39 A metabolite of Naproxen, O-desmethylnaproxen, has been shown to interfere with the [place] method for measuring total bilirubin. Samples from patients who have taken Naproxen have shown spurious elevation in total bilirubin levels. 40 Because ethnic data is not always readily available, this report includes an eGFR for both -Americans and non- Americans. The National Kidney Disease Education Program (NKDEP) does not endorse the use of the MDRD equation for patients that are not between the ages of 18 and 70, are , have extremes of body size, muscle mass, or nutritional status, or are non- or non-. According to the National Kidney Foundation, irrespective of diagnosis, the stage of the disease is based on the level of kidney function: Stage Description GFR(mL/min/1.73 m(2)) 1 Kidney damage with normal or decreased GFR 90 2 Kidney damage with mild decrease in GFR 60-89 3 Moderate decrease in GFR 30-59 4 Severe decrease in GFR 15-29 5 Kidney failure <15 (or dialysis) Procedures Date Code Description Status 03/24/2018 38003 EKG Tracing & Interpretation Completed 02/18/2018 19649 Inject/Drain Joint/Bursa Major W/O US Completed 05/08/2016 [id number] Colonoscopy Completed 12/30/2012 96889 ECHO Stress Test Incl Perf Contiuous ekg Monitoring Completed W/Phys Superv 12/30/2012 41768 ECHO Stress Test Incl Perf Contiuous ekg Monitoring Completed W/Phys Superv 12/15/2012 04778 EKG Tracing & Interpretation Completed 08/31/2010 [id number] Colonoscopy Completed 06/11/2010 [id number] Colonoscopy Completed 05/16/2010 53750 EKG Tracing & Interpretation Completed 05/01/2010 [id number] Diabetic Retinal Eye Exam Completed Encounters Type Date Location Provider Dx Diagnosis Office Visit 02/18/2018 Orthopedic Yoajna Jain, M25.562 Pain in left knee 11:15a [facility] M.[facility]. M25.462 Effusion, left knee M17.12 Unilateral primary osteoarthritis, left knee W18.39xA Other fall on same level, initial encounter Office Visit 01/19/2018 11:15a [facility]opedic Services Yojana Jain, M25.562 Pain in left Of [facility] M.D. knee M25.462 Effusion, left knee M17.12 Unilateral primary osteoarthritis, left knee W18.39xD Other fall on same level, subsequent encounter Office Visit 12/19/2017 3:00p [facility] Yojana Jain, M25.562 Pain in left Of [facility] M.D. knee M25.462 Effusion, left knee M17.12 Unilateral primary osteoarthritis, left knee W18.39xA Other fall on same level, initial encounter Office Visit 12/08/2017 2:30p [facility] Yojana Jain, M25.562 Pain in left Of [facility] M.D. knee M25.462 Effusion, left knee M17.12 Unilateral primary osteoarthritis, left knee W19.xxxA Unspecified fall, initial encounter Office Visit 11/24/2017 1:00p [facility] Internal Matt Goldstein M25.562 Pain in left Genoveva Love M.D. knee [place] Office Visit 05/05/2017 4:20p [facility] Internal Joe Z00.00 [facility] [place] [address] M.DKsenia medical exam w/o abnormal findings Office Visit 04/11/2016 9:20a [facility] Internal Joe Z00.00 [facility] [place] [address] M.D. medical exam w/o abnormal findings E78.5 Hyperlipidemia, unspecified Z23 Encounter for immunization Office Visit 02/14/2015 8:20a [facility] Internal Joe Vallejo, N64.59 Other signs and Medicine - M.D. symptoms in [address] breast N64.52 Nipple discharge Office Visit 01/31/2015 10:00a [facility] Internal Joe Vallejo, Z23 Encounter for Medicine - M.D. immunization [address] E78.5 Hyperlipidemia, unspecified Z00.01 Encounter for general adult medical exam w abnormal findings N64.59 Other signs and symptoms in breast K64.0 First degree hemorrhoids Office Visit 07/04/2014 1:40p [facility] Internal Joe Vallejo, 784.0 Headache Medicine - [address] M.DKsenia 075 Mononucleosis Infectious Office Visit 01/25/2014 9:00a [facility] Joe 530.81 Esophageal Genoveva Vallejo M.D. Reflux [place] 272.4 Hyperlipidemia Other Unspec V76.44 Screening For Malig Haersh Prostate V70.0 Examination General Medical Routine AT Health Care Facility 380.4 Impacted Cerumen Office Visit 01/26/2013 [facility] Joe 272.4 Hyperlipidemia Other 9:20a Genoveva Vallejo M.D. Unspec [place] 530.81 Esophageal Reflux V70.0 Examination General Medical Routine AT Health Care Facility v03.82 Streptococcus Pneumoniae Vaccination Spec Other V04.89 Need For Prophylactic Vaccination & Inoculation Other Virus Office Visit 12/30/2012 9:30a [facility] Qutaeh S. 786.50 Pain Chest Jailyn Garcia Unspec 794.31 Electrocardiogram (ECG) (EKG) Abnormal 272.4 Hyperlipidemia Other Unspec Office Visit 12/15/2012 [facility] Internal Joe 272.4 Hyperlipidemia Other 1:00p Medicine - Jailyn Vallejo Unspec [place] 530.81 Esophageal Reflux 786.50 Pain Chest Unspec V76.44 Screening For Malig Haresh Prostate V04.81 Need For Prophylactic Vaccination & Inoculation/Influenza Office Visit 09/04/2010 DO Not Use [facility] Joe 272.4 Hyperlipidemia Other 1:00p AT Ha Vallejo M.D. Unspec V70.0 Examination General Medical Routine AT Health Care Facility V06.5 Tetanus Diphtheria (DT) Office Visit 05/16/2010 2:00p DO Not Use [facility] Joe V72.84 Examination AT [place] [facility] Vallejo M.D. Preoperative Unspec 272.4 Hyperlipidemia Other Unspec V72.62 Laboratory Exam Ordered as Part Of Routine General Med Exam Plan of Treatment Future Appointment(s):04/07/2018 11:30 am - Rishabh Jung PA-C at [facility]04/07/2018 11:30 am - BHARATHI Pavon at [facility]04/07/2018 11:30 am - Yojana Jain M.D. at [facility]03/27/2018 1:30 pm - Yojana Jain M.D. at [facility]05/07/2018 10:20 am - Joe Vallejo M.D. at [facility] Internal Medicine - [address]03/24/2018 - Matt Love M.D.Z01.810 Encounter for preprocedural cardiovascular examinationNew Orders:EKG, Ordered: Comments:No contraindications to planned knee surgery. Preop labs dtcfyixV48.12 Unilateral primary osteoarthritis, left kneeComments:L TKA planned per wlkxwG53.9 Gastro-esophageal reflux disease without esophagitisComments:No sx with anti-reflux measures.Z11.59 Encounter for screening for other viral diseasesComments:Pt due for a Hep C screen
--- OUTSIDE RECORDS SUMMARY | 2018-04-11 15:25 | XMS REPORT | Continuity of Care Document ---
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 movement Gaviscon Active Chewtabs 80-14.2mg 30unit one tab Unknown 000 s prn Proctofoam HC Hx Foam 1-1% 1units apply K64.0 Joe 015 - daily [place], after M.D. 015 bowel movement x 10 days Omeprazole Hx Capsules 20mg 30caps 1 po qd am 530.81 Joe 013 - DR empty [place], stomach M.D. 014 Pain Reliever Hx Tablets 25-500mg Unknown PM Extra 000 - Strength 018 Medications Administered in Office Medication Date Status Form Strength Qnty SIG Indications Ordering Provider Depomedmichelle Administered Injection Yojana 40MG 018 Jailyn Jain Immunizations CPT Code Status Date Vaccine Lot # [id number] Given 04/11/2016 Pneumococcal Conjugate Vaccine 13 Valent For [id number] Intramuscular Use 53687 Given 01/31/2015 Influenza Virus Vaccine, Quadrivalent, Split, [id number] Preservative Free [id number] Given 01/26/2013 Zoster (Zostavax) [id number] 01543 Given 01/26/2013 Pneumonia Vaccine [id number] 67125 Given 12/15/2012 Flu Vaccine Split Virus Preservative Free For [id number] Indiv 3Yr Older 66380 Given 09/04/2010 Tdap - Tetanus/Diptheria/Acellular Pertussis [id number] Vital Signs Date Vital Result Comment 03/27/2018 1:11pm Height 74 inches 6'2" Weight 171.00 lb BP Systolic 124 mmHg BP Diastolic 73 mmHg Respiratory Rate 16 /min Pain Level 4 BMI (Body Mass Index) 22.0 kg/m2 03/24/2018 10:15am Height 74 inches 6'2" Weight [...] Result H/L Range Note Lipid Profile 04/04/2017 [facility] Triglycerides 144 mg/dL 1, 2 (Trig/Chol/HDL) [address] [place] [address] [phone] Cholesterol 195 mg/dL 3 HDL Cholesterol 46.5 mg/dL 4 LDL Cholesterol 120 mg/dL 5 Laboratory test 04/04/2017 [facility] Glucose 94 mg/dL N 70- 100 [address] [place] [address] [phone] Laboratory test 05/08/2016 [facility] Surgical Pathology SEE RESULT [address] [place] [address] [phone] Lipid Profile 04/04/2016 [facility] Triglycerides 67 mg/dL N 8 (Trig/Chol/HDL) [address] [place], [place] [address] [phone] Cholesterol 188 mg/dL N 9 HDL Cholesterol 49.7 mg/dL N 10 LDL Cholesterol 125 mg/dL N 11 Laboratory test 04/04/2016 [facility] Glucose 93 mg/dL N 70- [address] [place], [place] [id number] [phone] Lipid Profile 01/25/2015 [facility] Triglycerides 91 mg/dL N 13 (Trig/Chol/HDL) [address] [place] [address] [phone] Cholesterol 196 mg/dL N 14 HDL Cholesterol 52.4 mg/dL N 15 LDL Cholesterol 125 mg/dL N 16 Laboratory test 01/25/2015 [facility] Glucose 84 mg/dL N 70- [address] [place] [address] [phone] Laboratory test 07/04/2014 [facility] Monospot Negative N Negative [address] [place] [address] [phone] CBC Auto Diff 07/04/2014 [facility] White Blood 6.6 10^3/uL N 4.8-10.[address] [place] [address] [phone] Red Blood Count 4.83 10^6/uL N 4.0-5.4 [...] Cells % 0 N Laboratory test 07/04/2014 [facility] Erythrocyte Sed 10 mm/Hr N 0-40 [address] [place] [address] [phone] Laboratory test 02/04/2014 [facility] PSA Screening 1.591 N 0- 4.000 [address] ng/[place] [address] [phone] Comp Metabolic 01/21/2014 [facility] Sodium 138 mmol/L N 133- [address] [place] [address] [phone] Potassium 4.7 mmol/L N 3.5-5.0 20 Chloride 103 mmol/L N 101-111 Co2 Carbon [...] 68.9 N >60 Egfr 88.7 N >60 21 Lipid Profile 01/21/2014 [facility] Triglycerides 101 mg/dL N 22 (Trig/Chol/HDL) [address] [place] [address] [phone] Cholesterol 196 mg/dL N 23 HDL Cholesterol 55.0 mg/dL N 24 LDL Cholesterol 121 mg/dL N 25 Laboratory test 01/22/2013 [facility] PSA Screening 2.001 ng/mL 0-4.000 26 [address] [place] [address] [phone] Lipid Profile 01/22/2013 [facility] Triglycerides 69 mg/dL 40 -200 (Trig/Chol/HDL) [address] [place] [address] [phone] Cholesterol 220 mg/dL High Less than 200 HDL Cholesterol 58 mg/dL 40-60 27 Cholesterol/HDL Ratio 3.8 Average 1-4.44 LDL Cholesterol 148.2 High Less Than 100 28 Comp Metabolic Panel 01/22/2013 [facility] Sodium 141 mmol/L 133-145 [address] [place] [address] [phone] Potassium 5.1 mmol/L High 3.5-5.0 Chloride 105 [...] Egfr Non- 67.0 >60 Egfr 86.1 >60 29 Lipid Profile 07/09/2010 [facility] Triglyceride 60 mg/dL 40- 200 (Trig/Chol/HDL) [address] [place] [address] [phone] Cholesterol 205 mg/dL High Less Than 200 30 High Density Lipoprotein 58 mg/dL 40-60 31 Cholesterol/HDL Ratio 3.53 AVERAGE 1-4.97 Low Density Lipoprotein 135 mg/dL High Less Than 100 32 Surgical 06/11/2010 [facility] Surgical [address] Pathology <SEE NOTE> [place] [address] [phone] Laboratory 05/22/2010 [facility] PSA Screening 1.24 NG/ML 0- 4 [address] [place] [address] [phone] Lipid Profile 05/22/2010 [facility] Triglyceride 124 mg/dL 40 - (Trig/Chol/HDL [address] [place] [address] [phone] Cholesterol 213 mg/dL High Less Than 200 35 High Density Lipoprotein 54 mg/dL 40-60 36 Cholesterol/HDL Ratio 3.94 AVERAGE 1-4.97 Low Density Lipoprotein 134 mg/dL High Less Than 100 37 Comp Metabolic Panel 05/22/2010 [facility] Sodium 137 mmol/L [address] [place] [address] [phone] Potassium 4.7 mmol/L 3.5-5.0 Chloride 104 mmol/L [...] > 60 40 CBC Auto Diff 05/22/2010 [facility] White Blood 7.5 CUMM 4.8- 10.[address] [place] [address] [phone] Red Cell Count 5.00 CUMM 4.6-6.2 Hemoglobin [...] 10 HOUR 7 SEE RESULT BELOW Name: SOPHYKATRINWILLIAM : [address]: Renato Diaz MD Acct: [id number] Unit: [id number] AGE: 70 Location: ENDO Re05/08/16 SEX: M Status: DEP REF SPEC: [id number] NIGEL: 05/08/16- SUBM DR: Renato Diaz MD REQ: [id number] RECD: 05/08/16-1041 STATUS: TOYIN CORRIGAN DR: Joe Vallejo MD [...] performed at Main Lab DEPARTMENT OF PATHOLOGY, [address] [place] [address] Young King M.D. Director [facility] # [id number] Desirable <150 Borderline high 150-199 High [...] levels of PSA measured using the Bibi NativeAD DXI Hybritech immunoassay should not be interpreted as absolute evidence of the presence or absence of disease. The PSA value should be used in conjunction with other pertinent clinical diagnostic procedures. The values obtained with different assay methods or kits cannot be used interchangeably. 20 Potassium reference range changed effective 01/02/14 21 Because ethnic data is not always readily [...] 15-29 5 Kidney failure <15 (or dialysis) 22 Desirable <150 Borderline high 150-199 High 200-499 Very High >500 23 Desirable <200 Borderline high 200-239 High >239 24 Low <40 Desirable: 40-60 High: >60 25 Desirable <100 Near Optimal 100-129 Borderline high 130-159 High 160-189 Very High >189 26 Serum levels of PSA measured using the Bibi NativeAD DXI Hybritech immunoassay should not be interpreted as absolute evidence of the presence or absence of disease. The PSA value should be used in conjunction with other pertinent clinical diagnostic procedures. The values obtained with different assay methods or kits cannot be used interchangeably. 27 HDL Interpretation: Undesirable: High Risk: Less than 40 mg/dL Desirable: Low Risk: Greater than 60 mg/dL 28 LDL Interpretation: Low Risk Optimal Level: LDL Less than 100 mg/dL Near or Above Optimal: LDL 100-129 mg/dL Borderline High Risk: LDL 130-159 mg/dL High Risk: LDL 160-189 mg/dL Very High Risk: LDL Greater than 189 mg/dL 29 Because ethnic data is not always readily [...] 15-29 5 Kidney failure <15 (or dialysis) 30 CHOLESTEROL INTERPRETATION: Desirable: Less than 200 [...] 189 MG/DL 33 ---- RUN DATE: 06/12/10 [facility] NMI LIVE PAGE 1 RUN TIME: 1515 Specimen Inquiry RUN USER: INTERFACE -- Name: WILLIAM FRANCOIS Status: REG REF Re06/11/10 Age/Sex: 64/M Unit#: [id number] Location: END : 46 -- Specimen: [id number] SOUT Spec Date: 06/11/[address]: Renato rich MD Spec Type: SURGICAL P Received: 06/11/10-5981 Copies to: Joe giron MD SPECIMEN 1) RIGHT COLON POLYPS 2) BIOPSY TRANSVERSE COLON HISTORY POST-OP DIAGNOSIS: Colonoscopy to terminal ileum, prep good - 4 small ethan yps, 3 in right colon, one in transverse colon CLINICAL INFORMATION: Screening colonoscopy GROSS DESCRIPTION 1) The specimen is received in formalin labelled William Francois, Right Colon Polyps, and consists of multiple ferreira, soft tissue fragments measuring 1.3 x 0.3 x 0.2 cm. in aggregate. Submitted entirely, one cassette. 2) The specimen is received in formalin labelled William Francois, Biopsy Transverse Colon, and consists of a [...] 06/12/10 1511 -- -- DEPARTMENT OF PATHOLOGY, [address] [place] [address] [facility] Permit #[id number] Young King M.D. Director Franck Rodriguez M.D. Hunting Sales Associate Dir caity -- 34 * SERUM LEVELS OF PSA MEASURED USING THE BIBI ZAC ACCESS HYBRITECH IMMUNOASSAY SHOULD NOT BE INTERPRETED [...] has been shown to interfere with the Jendrassik-Madai method for measuring total bilirubin. Samples from [...] dialysis) Procedures Date Code Description Status 03/24/2018 18671 EKG Tracing & Interpretation Completed 02/18/2018 78468 Inject/Drain Joint/Bursa Major W/O US Completed 05/08/2016 [id number] Colonoscopy Completed 12/30/2012 11554 ECHO Stress Test Incl Perf Contiuous ekg Monitoring Completed W/Phys Superv 12/30/2012 12179 ECHO Stress Test Incl Perf Contiuous ekg Monitoring Completed W/Phys Superv 12/15/2012 34597 EKG Tracing & Interpretation Completed 08/31/2010 [id number] Colonoscopy Completed 06/11/2010 34108322 Colonoscopy Completed 05/16/2010 67984 EKG Tracing & Interpretation Completed 05/01/2010 [id number] Diabetic Retinal Eye Exam Completed Encounters Type Date Location Provider Dx Diagnosis Office Visit 02/18/2018 [facility] Yojana Jain, M25.562 Pain in left knee 11:15a [facility] M25.462 Effusion, left knee M17.12 Unilateral primary [...] fall, initial encounter Office Visit 11/24/2017 1:00p [facility] Internal Matt Goldstein M25.562 Pain in left Genoevva Love M.D. knee [place] Office Visit 05/05/2017 4:20p [facility] Internal [place] Z00.00 Encntr for Medicine - [place], general adult Rd M.D. medical exam w/o abnormal findings Office Visit 04/11/2016 9:20a [facility] Internal Joe Z00.00 Encntr for Medicine - [place], general adult Rd M.D. medical exam w/o abnormal findings E78.5 Hyperlipidemia, unspecified Z23 Encounter for immunization Office Visit 02/14/2015 8:20a [facility] Internal Joe Pach[place], N64.59 Other signs and Medicine - M.D. symptoms in [address] breast N64.52 Nipple discharge Office Visit 01/31/2015 10:00a [facility] Internal [place] P[place], Z23 Encounter for Medicine - M.D. immunization [address] E78.5 Hyperlipidemia, unspecified Z00.01 Encounter for general adult medical exam w abnormal findings N64.59 Other signs and symptoms in breast K64.0 First degree hemorrhoids Office Visit 07/04/2014 1:40p [facility] Internal Joe Pachsuera, 784.0 Headache Medicine - [address] M.D. 075 Mononucleosis Infectious Office Visit 01/25/2014 9:00a [facility] Internal [place] 530.81 Esophageal Medicine - [place], M.D. Reflux [place] 272.4 Hyperlipidemia Other Unspec V76.44 Screening For Malig Haresh Prostate V70.0 Examination General Medical Routine AT Health Care Facility 380.4 Impacted Cerumen Office Visit 01/26/2013 [facility] Internal [place] 272.4 Hyperlipidemia Other 9:20a Genoveva Vallejo M.D. Unspec [place] 530.81 Esophageal Reflux V70.0 Examination General Medical Routine AT Health Care Facility v03.82 Streptococcus Pneumoniae Vaccination Spec Other V04.89 Need For Prophylactic Vaccination & Inoculation Other Virus Office Visit 12/30/2012 9:30a [facility] Qutaybeh S. 786.50 Pain Chest Jailyn Garcia Unspec 794.31 Electrocardiogram (ECG) (EKG) Abnormal 272.4 Hyperlipidemia Other Unspec Office Visit 12/15/2012 [facility] Internal [place] 272.4 Hyperlipidemia Other 1:00p Genoveva Vallejo M.D. Unspec [place] 530.81 Esophageal Reflux 786.50 Pain Chest Unspec V76.44 Screening For Malig Haresh Prostate V04.81 Need For Prophylactic Vaccination & Inoculation/Influenza Office Visit 09/04/2010 DO Not Use [facility] [place] 272.4 Hyperlipidemia Other 1:00p AT Ha Vallejo M.D. Unspec V70.0 Examination General Medical Routine AT Health Care Facility V06.5 Tetanus Diphtheria (DT) Office Visit 05/16/2010 2:00p DO Not Use [facility] Joe V72.84 Examination AT Ha Vallejo M.D. Preoperative [place] 272.4 Hyperlipidemia Other Unspec V72.62 Laboratory Exam Ordered as Part Of Routine General Med Exam Plan of Treatment Future Appointment(s):04/17/2018 1:00 pm - Yojana Jain M.D. at [facility]04/07/2018 11:30 am - Rishabh Jung PA-C at [facility]04/07/2018 11:30 am - BHARATHI Pavon at [facility]04/07/2018 11:30 am - Yojana Jain M.D. at [facility]05/07/2018 10:20 am - Joe Vallejo M.D. at [facility] Internal Medicine - [address]03/27/2018 - Yojana Jain M.D.M17.12 Unilateral primary osteoarthritis, left kneeFollow up:Follow up: 2 weeks after drgfqyhW49.562 Pain in left knee
[2018-04-11] MEDS ORDERED: NS 0.9% 1000 ML** 1,000 ML IV ONE ×2 (15:34→17:28)
[2018-04-11] MEDS ORDERED: Iodixanol* (CONTRAST) 320 MG/ML 100 ML SDV IV ONE (15:44)
[2018-04-11 15:49] LABS: ABS Basophils 0 10^3/ul (0-0.2); ABS Eosinophils 0.1 10^3/ul (0-0.6); ABS Lymphocytes 1.4 10^3/ul (1.0-4.8); ABS Monocytes 1.4 10^3/ul (0-0.8); ABS Neutrophils 7.9 10^3/ul (1.5-7.7); ABS Nucleated RBC 0 10^3/ul; Eosinophil % 1.2 %; Hematocrit 31 % (42-52); Hemoglobin 10.8 g/dl (14.0-18.0); Lymphocyte % 12.5 %; Mean Corpuscular HGB Conc 35 g/dl (31-36); Mean Corpuscular Hemoglobin 31 pg (27-31); Mean Corpuscular Volume 89 fL (80-94); Mean Platelet Volume 9.2 fL (7.4-10.4); Nucleated Red Blood Cells % 0; Platelet Count 194 10^3/ul (150-450); Red Blood Count 3.44 10^6/ul (4.00-5.40); Red Cell Distribution Width 13 % (10.5-15); White Blood Count 10.9 10^3/ul (3.5-10.8)
[2018-04-11 16:00] LABS: Activated Partial Thrombo Time 29.3 seconds (26.0-36.3); INR 1.05 (0.77-1.02)
[2018-04-11 16:07] LABS: Albumin 3.7 g/dL (3.2-5.2); Albumin/Globulin Ratio 1.4 (1-3); BUN/Creatinine Ratio 15.5 (8-20); C Reactive Protein 236.57 mg/L (<8.01); EGFR African American 79.8 (>60); Globulin 2.6 g/dL (2-4); Total Bilirubin 0.6 mg/dL (0.2-1.0); Total Protein 6.3 g/dL (6.4-8.9)
[2018-04-11 16:09] LABS: Potassium 5.2 mmol/L (3.5-5.0)
[2018-04-11 16:13] LABS: CKMB ng/mL 3.1 ng/mL (0.6-6.3)
--- NOTE | 2018-04-11 16:15 | ED ---
Shortness of Breath - HPI Summary HPI Summary: Patient is a 72 y/o M presenting to ED with complaints of SOB since yesterday. He had a left knee replacement four days ago with Dr. Jain, was discharged . On 04/10, SOB with exertion onset which progressed to constant SOB at present. He notes erythema and swelling of leg after surgery. N/V are denied. Patient has been on Tramadol, last dosage yesterday. He is also on Eliquis, 2.5 mg BID and Tylenol. In room, o2 ranges between 86 and 93%, pulse 111. Patient called Dr. Jain, patient was advised to come to ED for workup. On triage, pain is rated 10/10, nothing is noted to aggravate/alleviate Sx. Home medications and allergies are reviewed. - History of Current Complaint Chief Complaint: EDShortnessOfBreath Time Seen by Provider: 04/11/18 15:26 Hx Obtained From: Patient Onset/Duration: Lasting Days - onset of SOB yesterday, Still Present, Worse Since Timing: Constant Current Severity: Severe Aggrevating Factors: Nothing Alleviating Factors: Nothing Associated Signs & Symptoms: Calf Pain/Swelling - left, Edema - left leg - Allergy/Home Medications Allergies/Adverse Reactions: Allergies Allergy/AdvReac Type Severity Reaction Status Date / Time No Known Allergies Allergy Verified 04/11/18 15:25 PMH/Surg Hx/FS Hx/Imm Hx Endocrine/Hematology History: Denies: Hx Diabetes Cardiovascular History: Denies: Hx Hypertension, Hx Pacemaker/ICD Respiratory History: Denies: Hx Asthma GI History: Reports: Hx Hiatal Hernia History: Denies: Hx Renal Disease Musculoskeletal History: Reports: Hx Arthritis - osteoarthritis Sensory History: Reports: Hx Contacts or Glasses Denies: Hx Hearing Aid Opthamlomology History: Reports: Hx Contacts or Glasses Psychiatric History: Denies: Hx Panic Disorder - Cancer History Hx Chemotherapy: No - Surgical History Surgery Procedure, Year, and Place: LEFT SHOULDER RTC REPAIR, ARTHROSCOPY LEFT KNEE X 2 1990 , 2000, T&A as a baby, CATARACT REPAIR BILATERALLY 2010 Hx Anesthesia Reactions: No Infectious Disease History: No Infectious Disease History: Denies: Traveled Outside the [place] in Last 30 Days - Family History Known Family History: Negative: Blood Disorder - Social History Alcohol Use: Daily Substance Use Type: Reports: None Smoking Status (MU): Never Smoked Tobacco Review of Systems Positive: Shortness Of Breath Negative: Vomiting, Nausea Positive: Edema - left leg Skin: Other - POSITIVE - LEFT LEG ERYTHEMA All Other Systems Reviewed And Are Negative: Yes Physical Exam - Summary Physical Exam Summary: VITAL SIGNS: Reviewed. GENERAL: Patient is a well-developed and nourished male who is lying comfortable in the stretcher. Patient is not in any acute respiratory distress. He is anxious appearing. HEAD AND FACE: No signs of trauma. No ecchymosis, hematomas or skull depressions. No sinus tenderness. EYES: PERRLA, EOMI x 2, No injected conjunctiva, no nystagmus. EARS: Hearing grossly intact. Ear canals and tympanic membranes are within normal limits. MOUTH: Oropharynx within normal limits. NECK: Supple, trachea is midline, no adenopathy, no JVD, no carotid bruit, no c- spine tenderness, neck with full ROM. CHEST: Symmetric, no tenderness at palpation LUNGS: Hypoxic, no wheezing or crackles. CVS: Tachycardic, S1 and S2 present, no murmurs or gallops appreciated. ABDOMEN: Soft, non-tender. No signs of distention. No rebound no guarding, and no masses palpated. Bowel sounds are normal. EXTREMITIES: FROM in all major joints, no edema, no cyanosis or clubbing. NEURO: Alert and oriented x 3. No acute neurological deficits. Speech is normal and follows commands. SKIN: Dry and warm; left knee with erythema and going into medial aspect of left thigh, sutures intact, no discharge Triage Information Reviewed: Yes Vital Signs On Initial Exam: Initial Vitals Temp Pulse Resp BP Pulse Ox 97.0 F 120 18 157/74 100 04/11/18 15:22 04/11/18 15:22 04/11/18 15:22 04/11/18 15:22 04/11/18 15:22 Vital Signs Reviewed: Yes Diagnostics - Vital Signs Vital Signs Temp Pulse Resp BP Pulse Ox 04/11/18 15:22 97.0 F 120 18 157/74 100 - Laboratory Lab Results: Lab Results 04/11/18 04/11/18 04/11/18 Range/Units 15:41 15:41 15:41 WBC 10.9 H (3.5-10.8) 10^3/ul RBC 3.44 L (4.00-5.40) 10^6/ul Hgb 10.8 L (14.0-18.0) g/dl Hct 31 L (42-52) % MCV 89 (80-94) fL MCH 31 (27-31) pg MCHC 35 (31-36) g/dl RDW 13 (10.5-15) % Plt Count 194 (150-450) 10^3/ul MPV 9.2 (7.4-10.4) fL Neut % (Auto) 72.8 % Lymph % (Auto) 12.5 % [place] % (Auto) 13.1 % Eos % (Auto) 1.2 % Baso % (Auto) 0.4 % Absolute Neuts (auto) 7.9 H (1.5-7.7) 10^3/ul Absolute Lymphs (auto) 1.4 (1.0-4.8) 10^3/ul Absolute Monos (auto) 1.4 H (0-0.8) 10^3/ul Absolute Eos (auto) 0.1 (0-0.6) 10^3/ul Absolute Basos (auto) 0 (0-0.2) 10^3/ul Absolute Nucleated RBC 0 10^3/ul Nucleated RBC % 0 INR (Anticoag Therapy) 1.05 H (0.77-1.02) APTT 29.3 (26.0-36.3) seconds Sodium 136 (135-145) mmol/L Potassium 5.2 H (3.5-5.0) mmol/L Chloride 104 (101-111) mmol/L Carbon Dioxide 26 (22-32) mmol/L Anion Gap 6 (2-11) mmol/L BUN 17 (6-24) mg/dL Creatinine 1.10 (0.67-1.17) mg/dL Est GFR ( Amer) 79.8 (>60) Est GFR (Non-Af Amer) 66.0 (>60) BUN/Creatinine Ratio 15.5 (8-20) Glucose 103 H (70-100) mg/dL Lactic Acid (0.5-2.0) mmol/L Calcium 9.0 (8.6-10.3) mg/dL Total Bilirubin 0.60 (0.2-1.0) mg/dL AST 34 (13-39) U/L ALT 18 (7-52) U/L Alkaline Phosphatase 44 (34-104) U/L Total Creatine Kinase 720 H (10-223) U/L CK-MB (CK-2) 3.1 (0.6-6.3) ng/mL Troponin I 0.00 (<0.04) ng/mL C-Reactive Protein 236.57 H (<8.01) mg/L B-Natriuretic Peptide (<=100) pg/mL Total Protein 6.3 L (6.4-8.9) g/dL Albumin 3.7 (3.2-5.2) g/dL Globulin 2.6 (2-4) g/dL Albumin/Globulin Ratio 1.4 (1-3) 04/11/18 04/11/18 Range/Units 15:41 15:41 WBC (3.5-10.8) 10^3/ul RBC (4.00-5.40) 10^6/ul Hgb (14.0-18.0) g/dl Hct (42-52) % MCV (80-94) fL MCH (27-31) pg MCHC (31-36) g/dl RDW (10.5-15) % Plt Count (150-450) 10^3/ul MPV (7.4-10.4) fL Neut % (Auto) % Lymph % (Auto) % [place] % (Auto) % Eos % (Auto) % Baso % (Auto) % Absolute Neuts (auto) (1.5-7.7) 10^3/ul Absolute Lymphs (auto) (1.0-4.8) 10^3/ul Absolute Monos (auto) (0-0.8) 10^3/ul Absolute Eos (auto) (0-0.6) 10^3/ul Absolute Basos (auto) (0-0.2) 10^3/ul Absolute Nucleated RBC 10^3/ul Nucleated RBC % INR (Anticoag Therapy) (0.77-1.02) APTT (26.0-36.3) seconds Sodium (135-145) mmol/L Potassium (3.5-5.0) mmol/L Chloride (101-111) mmol/L Carbon Dioxide (22-32) mmol/L Anion Gap (2-11) mmol/L BUN (6-24) mg/dL Creatinine (0.67-1.17) mg/dL Est GFR ( Amer) (>60) Est GFR (Non-Af Amer) (>60) BUN/Creatinine Ratio (8-20) Glucose (70-100) mg/dL Lactic Acid 5.0 H* (0.5-2.0) mmol/L Calcium (8.6-10.3) mg/dL Total Bilirubin (0.2-1.0) mg/dL AST (13-39) U/L ALT (7-52) U/L Alkaline Phosphatase (34-104) U/L Total Creatine Kinase (10-223) U/L CK-MB (CK-2) (0.6-6.3) ng/mL Troponin I (<0.04) ng/mL C-Reactive Protein (<8.01) mg/L B-Natriuretic Peptide 67 (<=100) pg/mL Total Protein (6.4-8.9) g/dL Albumin (3.2-5.2) g/dL Globulin (2-4) g/dL Albumin/Globulin Ratio (1-3) Result Diagrams: 04/12/18 06:56 04/12/18 06:56 Lab Statement: Any lab studies that have been ordered have been reviewed, and results considered in the medical decision making process. - CT cta chest/thorax CT Interpretation Completed By: Radiologist Summary of CT Findings: IMPRESSION: 1. NO EVIDENCE FOR PULMONARY EMBOLISM. 2. MULTIPLE HYPODENSE HEPATIC LESIONS LIKELY REPRESENTING CYSTS. RECOMMEND AN OUTPATIENT. HEPATIC ULTRASOUND FOR FURTHER DEFINITION. THIS REPORT WAS REVIEWED. - EKG 1620 Cardiac Rate: NL - rate of 99 BPM EKG Rhythm: Sinus Rhythm Summary of EKG Findings: EKG showed sinus rhythm with rate of 99 BPM, no ST elevation, normal axis. Re-Evaluation - Re-Evaluation First Eval Re-Evaluation Time: 17:45 Change: Worse Comment: Patient is has developed a fever. Upon examination of left leg, the left knee is noted to be red, hot to touch, swollen and painful. He will be started on Zosyn. Second Eval Re-Evaluation Time: 19:29 Comment: Dr. Barrett examined leg with US, no fluid is noted in knee. Course/Dx - Course Assessment/Plan: Patient is a 72 y/o M presenting to ED with complaints of SOB since yesterday. He had a left knee replacement four days ago with Dr. Jain, was discharged 04/08/18. On 04/10, SOB with exertion onset which progressed to constant SOB at present. He notes erythema and swelling of leg after surgery. N/ V are denied. Patient has been on Tramadol, last dosage yesterday. He is also on Eliquis, 2.5 mg BID and Tylenol. In room, o2 ranges between 86 and 93%, pulse 111. Patient called Dr. Jain, patient was advised to come to ED for workup. Blood work shows a wbcs of 10.9, hemoglobin 10.8, hematocrit 31 and platelets 194. Potassium is 5.2 glucose 103 lactic acid is 5, and CPK is 720, CRP is 236 and troponin 0.00. Chest CTA impression: No evidence for pulmonary embolism. Multiple hypodense hepatic lesions neck represent cyst. Recommend an outpatient hepatic ultrasound for further evaluation. At this point we removed wrapping from the left lower extremity and we noticed that the left knee is swollen, with positive erythema from the knee going into the left medial thigh. Therefore I believe that the patient has an infection. In the ED course the patient developed a fever and I started given Tylenol, IV fluids, given Zosyn and vancomycin. At this point I discussed the case with Dr. Brown who requests for the knee to be aspirated. However we did a quick ultrasound to see how much fluid he has any and fluid is almost non-existent. Therefore he recommended for the patient to be admitted to the hospital services and continued IV antibiotics and he will consult tomorrow morning. Therefore, I discussed case with Dr. Guthrie from the hospital services was accepted the patient for admission. - Diagnoses Provider Diagnoses: Cellulitis - Physician Notifications Discussed Care of Patient With: Ismael Brown Time Discussed With Above Provider: 19:06 Instructed by Provider To: Other - Patient's case was discussed with Dr. Brown at 1905, he asks for aspiration of knee and that the hospitalist admit the patient. 1945 - Updated Dr. Brown on US findings. 1958 - Patient's case was discussed with Dr. Ray, Dr. Ray accepts for admission. - Critical Care Time Critical Care Time: 30-74 min Discharge - Sign-Out/Discharge Documenting (check all that apply): Patient Departure - admit Patient Received Moderate/Deep Sedation with Procedure: No - NO PROCEDURES DONE - Discharge Plan Condition: Stable Disposition: ADMITTED TO [facility] - Billing Disposition and Condition Condition: STABLE Disposition: Admitted to [facility] - Attestation Statements Document Initiated by Scribe: Yes Documenting Scribe: BARRON ARAGON Provider For Whom Scribe is Documenting (Include Credential): NAY BARRETT MD Scribe Attestation: IBARRON, scribed for NAY BARRETT MD on 04/12/18 at 1255. Scribe Documentation Reviewed: Yes Provider Attestation: The documentation as recorded by the BARRON srinivasan accurately reflects the service I personally performed and the decisions made by me, NAY BARRETT MD Status of Scribe Document: Viewed
[2018-04-11 16:44] LABS: Urine Appearance Clear; Urine Bilirubin Negative (Negative); Urine Blood Negative (Negative); Urine Color Straw; Urine Glucose Negative (Negative); Urine Ketones Negative (Negative); Urine Nitrite Negative (Negative); Urine Protein Negative (Negative); Urine Specific Gravity 1.023 (1.010-1.030); Urine Urobilinogen Negative (Negative)
[2018-04-11] MEDS ORDERED: Acetaminophen TAB* 325 MG PO ONE (17:40)
[2018-04-11] MEDS ORDERED: cefTRIAXone(*) 2 GM in NS 0.9% 100 ML* 100 ML IVPB ONE (17:40)
[2018-04-11] MEDS ORDERED: Piperacillin/Tazobac ADVAN(*) 3.375 GM in NS 0.9% 100 ML* 100 ML IVPB ONE (17:51)
[2018-04-11] MEDS ORDERED: Piperacillin/Tazobac (*) 3.375 GM BAG ONE (18:09)
[2018-04-11] MEDS ORDERED: Vancomycin(*) 1,000 MG in NS 0.9% 250 ML* 250 ML IVPB ONE (19:10)
[2018-04-11] MEDS ORDERED: Gaviscon CHEW TAB* 1 TAB PO PRN (20:17)
[2018-04-11] MEDS ORDERED: Docusate CAP* 100 MG PO PRN (21:00)
[2018-04-11] MEDS ORDERED: Ondansetron INJ* 2 MG/ML VIAL IV PRN (21:20)
[2018-04-11] MEDS ORDERED: Vancomycin per Pharmacy* NOTE FOLLOW UP PRN (21:26)
[2018-04-11] MEDS: Apixaban* 2.5 MG TAB PO SCH (21:56)
--- NOTE | 2018-04-11 22:32 | HP ---
CC: Dr. Joe Vallejo HISTORY AND PHYSICAL: DATE OF ADMISSION: 04/11/18 PRIMARY CARE PROVIDER: Dr. Joe Vallejo. CHIEF COMPLAINT: Shortness of breath. HISTORY OF PRESENT ILLNESS: This is a 72-year-old male with no significant past medical history; however, did have a left knee total replacement about 4 days ago in our hospital and was subsequently discharged. The patient now comes into the emergency room because of shortness of breath. The patient reports that the shortness of breath has gradually been worsening, associated with chills. He does not have any cough. No chest pain. The patient has also noted that the area of the left knee has gotten red, swollen, and the redness has been tracking upwards to the thigh region as well. In the emergency room, the patient was seen and evaluated. CTA was done, which did not show any pulmonary embolism. The patient also was noted to have fever, elevated lactic acid, and was noted to have signs suggestive of possible left leg cellulitis. Dr. Brown, orthopedic surgeon, was contacted by the emergency room physician, who felt as if it is cellulitis and therefore needs to be admitted by Medicine. Also, in the emergency room, they did an ultrasound to check for fluid at the left knee region; however, there was no fluid to be aspirated for additional diagnostics. Subsequently, hospitalist service was called. PAST MEDICAL HISTORY: None. PAST SURGICAL HISTORY: 1. Left total knee replacement. 2. Left shoulder surgery. 3. Knee arthroscopy. HOME MEDICATIONS: Include: 1. Gaviscon chewable, 1 tablet twice a day as needed. 2. Colace 100 mg b.i.d. 3. Apixaban 2.5 mg b.i.d. 4. Tylenol every 8 hours as needed. ALLERGIES: No known drug allergies. FAMILY HISTORY: Per his record, his parents are both healthy, with no acute medical issues. SOCIAL HISTORY: The patient lives at home, with his . He does not smoke. He drinks 2 beers daily and reports that he has not had any alcohol withdrawal symptoms. REVIEW OF SYSTEMS: The patient is having fevers in the emergency room, associated with chills. There are no changes in his vision or hearing. No sore throat. Nobody around him is sick. No cough, no sputum production. He was having shortness of breath; however, has improved in the emergency room. There is no chest pain, no palpitations, no abdominal pain. No nausea, no vomiting, no diarrhea. The patient is having some right knee pain; however, he attributes this to the surgery. No back pain, no headaches. No acute neurological symptoms. He is having a rash and redness at the left leg region. Otherwise, the full review of system was done and it is negative. PHYSICAL EXAMINATION GENERAL: This is an well-developed, well-nourished male, lying on the ER stretcher, in no acute distress. VITAL SIGNS: Blood pressure of 143/82, heart rate of 94, respiratory rate of 16 , oxygenation of 99% on room air, currently temperature is 99 Fahrenheit, T-max of 101.6 in the emergency room at about 5:40 p.m. HEENT: Pupils are equal, round, and reactive to light. Atraumatic, normocephalic. No oropharyngeal erythema. LUNGS: There is no tachypnea. No use of accessory muscles. Lungs are clear to auscultation bilaterally, with no wheezing, rales or rhonchi. HEART: There is no chest wall tenderness. Regular rate and rhythm. No murmurs , rubs or gallops. ABDOMEN: Bowel sounds are normoactive in all 4 quadrants. Abdomen is soft, nontender, nondistended. EXTREMITIES: There is 2+ pitting edema of the left lower extremity. There is erythema starting at the left knee region, all the way tracking up to the left thigh region and the groin region. There is mild tenderness at the left knee. NEUROLOGIC: Alert and oriented x3 with no focal neurological deficits. Speech is clear and coherent. There is no facial asymmetry. Motor is 5/5 in all 4 extremities. DIAGNOSTIC STUDIES/LAB DATA: White count of 10.9, hemoglobin of 10.8, hematocrit of 31. Chemistries: Sodium of 136, potassium of 5.2, which was repeated at 4.6, BUN of 17, creatinine of 1.10, glucose of 103, lactic acid of 5.0, repeated at 0.7. CK of 720, CRP of 236. Radiology Report: CTA was done, which shows no evidence for pulmonary embolism. Multiple hypodense hepatic lesions, likely representing cyst, recommended an outpatient hepatic ultrasound. EKG shows sinus rhythm with no acute ST-T changes. IMPRESSION: 1. Left leg cellulitis in the setting of knee surgery recently: We will start the patient on vancomycin. Blood cultures have been sent. We will rule out a DVT with ultrasound of the lower extremity. 2. Hepatic lesions: Likely representing cyst, seen on CTA. Recommend outpatient liver ultrasound. 3. Lactic acidosis, resolved. 4. Hyperkalemia, resolved. 5. Continue pain management. 6. We will continue the patient's Eliquis for DVT prophylaxis. 7. Regular diet. 8. Dr. Brown, orthopedic surgeon, will consult on the patient as well. [id number]/[facility] #: [id number] MTDD
[2018-04-11] MEDS: NS 0.9% 1000 ML** 1,000 ML IV SCH (23:13)
[2018-04-12] MEDS: Vancomycin(*) 1,000 MG in NS 0.9% 250 ML* 250 ML IVPB SCH ×3 (05:26→21:05)
[2018-04-12 07:24] LABS: Hematocrit 26 % (42-52); Hemoglobin 9.1 g/dl (14.0-18.0); Mean Corpuscular HGB Conc 35 g/dl (31-36); Mean Corpuscular Hemoglobin 31 pg (27-31); Mean Corpuscular Volume 91 fL (80-94); Mean Platelet Volume 9.3 fL (7.4-10.4); Platelet Count 165 10^3/ul (150-450); Red Cell Distribution Width 13 % (10.5-15); White Blood Count 7.7 10^3/ul (3.5-10.8)
[2018-04-12 07:25] LABS: ABS Basophils 0 10^3/ul (0-0.2); ABS Eosinophils 0.2 10^3/ul (0-0.6); ABS Neutrophils 5.5 10^3/ul (1.5-7.7); ABS Nucleated RBC 0 10^3/ul; Lymphocyte % 12.9 %; Nucleated Red Blood Cells % 0
[2018-04-12 07:32] LABS: Calcium 8.3 mg/dL (8.6-10.3)
[2018-04-12 07:38] LABS: BUN/Creatinine Ratio 11.8 (8-20); EGFR African American 107.5 (>60); EGFR Non-African American 88.9 (>60)
[2018-04-12] MEDS: Apixaban* 2.5 MG TAB PO SCH ×2 (07:57→21:05)
[2018-04-12] MEDS: Acetaminophen TAB* 325 MG PO PRN ×2 (08:18→16:34)
[2018-04-12] MEDS: NS 0.9% 1000 ML** 1,000 ML IV SCH (12:01)
--- NOTE | 2018-04-12 16:24 | PN ---
Progress Note - Progress Note Date of Service: 04/12/18 SOAP: Subjective: 72 yo male, underwent a left TKA on Friday 04/07. Went home 04/08, but reports that on was starting to feel off, and then worse on Friday. Friday had SOB and came to the ED. CT chest showed no PE, but the ED was worried about the purple and redness about the leg. Did have a fever of 101.6 in the ED, plus a lactic acid of 5. I asked the ED to tap the knee when they called, so that we could have a gram stain and cultures before abx, but US showed no fluid in the knee and therefore no tap was done. He was fluid resuscitated and started an abx and reports he is doing better. Has walked up and the hallway and that has gone well. Objective: Mature male, NAD. He has an impressive hematoma centered over the medial/posterior thigh. It is warm and tender to palpation. Knee wound appear benign, with no staining of the gauze from yesterday, no fluid expressible with compression/manipulation of the wound. Also warm and tender, typical for a TKA. No erythema about the wound. Distal lacerations have dry granulation and the angry erythemia about them, but no diffuse redness or other signs of infection. Assessment: Improving cellulitis Plan: Likely the hematoma of the thigh was driving his symptoms, as the elliquis is known to cause additional bleeding. This is the balance between more effective DVT/PE control and other problems generated by the anti- coagulation. Considering he was declared an ambulatory procedure by his insurance company, the usual coumadin was not an option. Likely he can be switched to PO antibiotics today/tomorrow and probably be discharged home tomorrow. []
--- NOTE | 2018-04-12 16:31 | PN ---
Subjective Date of Service: 04/12/18 Interval History: Pain in left knee unable to bend knee no SOB or cough feel knee is more swollen Objective Active Medications: Acetaminophen (Tylenol Tab*) 650 mg PO Q6H PRN PRN Reason: FEVER/PAIN Last Admin: 04/12/18 08:18 Dose: 650 mg Al Hydroxide/Mg Trisilicate (Gaviscon Chew Tab*) 1 tab.chew PO BID PRN PRN Reason: HEARTBURN Apixaban (Eliquis*) 2.5 mg PO BID ASHLEE Last Admin: 04/12/18 07:57 Dose: 2.5 mg Docusate Sodium (Colace Cap*) 100 mg PO BID PRN PRN Reason: CONSTIPATION Last Admin: 04/11/18 21:59 Dose: 100 mg Vancomycin HCl 1,000 mg/ (Sodium Chloride) 250 mls @ 166.667 mls/hr IVPB Q8H [facility]; Protocol Last Admin: 04/12/18 12:57 Dose: 166.667 mls/hr Ondansetron HCl (Zofran Inj*) 4 mg IV Q6H PRN PRN Reason: NAUSEA Pharmacy Consult (Vancomycin Per Pharmacy*) 1 note FOLLOW UP . PRN PRN Reason: PER PROTOCOL Pharmacy Profile Note (Vancomycin Trough Check) 1 note FOLLOW UP ONCE ONE Stop: 04/13/18 05:01 Vital Signs - 8 hr 04/12/18 12:00 Temperature 99.5 F Pulse Rate 85 Respiratory 18 Rate Blood Pressure 118/61 (mmHg) O2 Sat by Pulse 99 Oximetry Oxygen Devices in Use Now: None Appearance: NAD Eyes: No Scleral Icterus, PERRLA Ears/Nose/Mouth/Throat: NL Teeth, Lips, Gums, Clear Oropharnyx Neck: NL Appearance and Movements; NL JVP, Trachea Midline Respiratory: Symmetrical Chest Expansion and Respiratory Effort, Clear to Auscultation Cardiovascular: NL Sounds; No Murmurs; No JVD, RRR Abdominal: NL Sounds; No Tenderness; No Distention Lymphatic: No Cervical Adenopathy Extremities: - - pitting edema over left knee Skin: - - mild erythema surround left knee incision, dry no discharge, area of erythema/violacious discoloration on left medial thigh extending proximally into groin extending outside area of demarcation Neurological: Alert and Oriented x 3 Result Diagrams: 04/12/18 06:56 04/12/18 06:56 Additional Lab and Data: Lab Results 04/11/18 04/11/18 04/11/18 Range/Units 15:41 15:41 15:41 WBC 10.9 H (3.5-10.8) 10^3/ul RBC 3.44 L (4.00-5.40) 10^6/ul Hgb 10.8 L (14.0-18.0) g/dl Hct 31 L (42-52) % MCV 89 (80-94) fL MCH 31 (27-31) pg MCHC 35 (31-36) g/dl RDW 13 (10.5-15) % Plt Count 194 (150-450) 10^3/ul MPV 9.2 (7.4-10.4) fL Neut % (Auto) 72.8 % Lymph % (Auto) 12.5 % [place] % (Auto) 13.1 % Eos % (Auto) 1.2 % Baso % (Auto) 0.4 % Absolute Neuts (auto) 7.9 H (1.5-7.7) 10^3/ul Absolute Lymphs (auto) 1.4 (1.0-4.8) 10^3/ul Absolute Monos (auto) 1.4 H (0-0.8) 10^3/ul Absolute Eos (auto) 0.1 (0-0.6) 10^3/ul Absolute Basos (auto) 0 (0-0.2) 10^3/ul Absolute Nucleated RBC 0 10^3/ul Nucleated RBC % 0 INR (Anticoag Therapy) 1.05 H (0.77-1.02) APTT 29.3 (26.0-36.3) seconds Sodium 136 (135-145) mmol/L Potassium 5.2 H (3.5-5.0) mmol/L Chloride 104 (101-111) mmol/L Carbon Dioxide 26 (22-32) mmol/L Anion Gap 6 (2-11) mmol/L BUN 17 (6-24) mg/dL Creatinine 1.10 (0.67-1.17) mg/dL Est GFR ( Amer) 79.8 (>60) Est GFR (Non-Af Amer) 66.0 (>60) BUN/Creatinine Ratio 15.5 (8-20) Glucose 103 H (70-100) mg/dL Lactic Acid (0.5-2.0) mmol/L Calcium 9.0 (8.6-10.3) mg/dL Total Bilirubin 0.60 (0.2-1.0) mg/dL AST 34 (13-39) U/L ALT 18 (7-52) U/L Alkaline Phosphatase 44 (34-104) U/L Total Creatine Kinase 720 H (10-223) U/L CK-MB (CK-2) 3.1 (0.6-6.3) ng/mL Troponin I 0.00 (<0.04) ng/mL C-Reactive Protein 236.57 H (<8.01) mg/L B-Natriuretic Peptide (<=100) pg/mL Total Protein 6.3 L (6.4-8.9) g/dL Albumin 3.7 (3.2-5.2) g/dL Globulin 2.6 (2-4) g/dL Albumin/Globulin Ratio 1.4 (1-3) 04/11/18 04/11/18 Range/Units 15:41 15:41 WBC (3.5-10.8) 10^3/ul RBC (4.00-5.40) 10^6/ul Hgb (14.0-18.0) g/dl Hct (42-52) % MCV (80-94) fL MCH (27-31) pg MCHC (31-36) g/dl RDW (10.5-15) % Plt Count (150-450) 10^3/ul MPV (7.4-10.4) fL Neut % (Auto) % Lymph % (Auto) % [place] % (Auto) % Eos % (Auto) % Baso % (Auto) % Absolute Neuts (auto) (1.5-7.7) 10^3/ul Absolute Lymphs (auto) (1.0-4.8) 10^3/ul Absolute Monos (auto) (0-0.8) 10^3/ul Absolute Eos (auto) (0-0.6) 10^3/ul Absolute Basos (auto) (0-0.2) 10^3/ul Absolute Nucleated RBC 10^3/ul Nucleated RBC % INR (Anticoag Therapy) (0.77-1.02) APTT (26.0-36.3) seconds Sodium (135-145) mmol/L Potassium (3.5-5.0) mmol/L Chloride (101-111) mmol/L Carbon Dioxide (22-32) mmol/L Anion Gap (2-11) mmol/L BUN (6-24) mg/dL Creatinine (0.67-1.17) mg/dL Est GFR ( Amer) (>60) Est GFR (Non-Af Amer) (>60) BUN/Creatinine Ratio (8-20) Glucose (70-100) mg/dL Lactic Acid 5.0 H* (0.5-2.0) mmol/L Calcium (8.6-10.3) mg/dL Total Bilirubin (0.2-1.0) mg/dL AST (13-39) U/L ALT (7-52) U/L Alkaline Phosphatase (34-104) U/L Total Creatine Kinase (10-223) U/L CK-MB (CK-2) (0.6-6.3) ng/mL Troponin I (<0.04) ng/mL C-Reactive Protein (<8.01) mg/L B-Natriuretic Peptide 67 (<=100) pg/mL Total Protein (6.4-8.9) g/dL Albumin (3.2-5.2) g/dL Globulin (2-4) g/dL Albumin/Globulin Ratio (1-3) Assess/Plan/Problems-Billing Assessment: 72 yo M left TKR 2/ returning with fever, pain erythema of left leg - Patient Problems (1) Cellulitis Comment: vancomycin may have component of bruising on medial thigh ortho c/s (2) History of left knee replacement Comment: by Dr. Cristobal spivey week discussed with Dr. Brown (3) Anemia Comment: on eliquis trend cbc (4) DVT prophylaxis Comment: raymundo
[2018-04-13] MEDS: Acetaminophen TAB* 325 MG PO PRN ×2 (04:32→10:00)
[2018-04-13 04:59] LABS: ABS Basophils 0.1 10^3/ul (0-0.2); ABS Eosinophils 0.4 10^3/ul (0-0.6); ABS Lymphocytes 1.1 10^3/ul (1.0-4.8); ABS Monocytes 0.9 10^3/ul (0-0.8); ABS Neutrophils 5.2 10^3/ul (1.5-7.7); ABS Nucleated RBC 0 10^3/ul; Eosinophil % 5.1 %; Hematocrit 26 % (42-52); Hemoglobin 8.7 g/dl (14.0-18.0); Lymphocyte % 14.4 %; Mean Corpuscular HGB Conc 34 g/dl (31-36); Mean Corpuscular Hemoglobin 31 pg (27-31); Mean Corpuscular Volume 91 fL (80-94); Mean Platelet Volume 8.8 fL (7.4-10.4); Nucleated Red Blood Cells % 0; Platelet Count 184 10^3/ul (150-450); Red Blood Count 2.84 10^6/ul (4.00-5.40); Red Cell Distribution Width 13 % (10.5-15); White Blood Count 7.6 10^3/ul (3.5-10.8)
[2018-04-13] MEDS ORDERED: Vancomycin Trough Check NOTE FOLLOW UP ONE (05:00)
[2018-04-13 05:17] LABS: EGFR African American 96.9 (>60); EGFR Non-African American 80.1 (>60)
[2018-04-13 05:45] LABS: Vancomycin Trough 11.9 mcg/mL
[2018-04-13] MEDS: Vancomycin(*) 1,000 MG in NS 0.9% 250 ML* 250 ML IVPB SCH ×2 (05:56→13:45)
[2018-04-13] MEDS: Apixaban* 2.5 MG TAB PO SCH (09:58)
--- NOTE | 2018-04-13 10:46 | CONS ---
CONSULTATION REPORT: DATE OF CONSULT: 04/13/18 REQUESTING PHYSICIAN: Dr. De La Rosa. CONSULTING SERVICE: Infectious Disease. REASON FOR CONSULT: Left thigh hematoma. IMPRESSION: 1. Recent left knee arthroplasty, which he tolerated well. There was some left medial thigh swelling, purplish discoloration and inflammatory response. Improving while here on antibiotics and with antiinflammatories. 2. Dyspnea, present on admission then resolved. CT of the chest showed no pulmonary embolism or infiltrate that I could see. Blood cultures here were negative. He has been ambulating without much pain in the knee and working with Physical Therapy. RECOMMENDATIONS: Discontinue IV antibiotics. Use clindamycin 300 mg by mouth 3 times a day for 5 more days. Follow up with me next week. He knows to return with worsening erythema, pain, and swelling in the knee. HISTORY OF PRESENT ILLNESS: Mr Feng is a 72 year old man who had a left knee arthroplasty last week which was uneventful, but over the weekend he became short of breath. He had no cough or chest pain, it was worse with walking. He came to the ER and had a CT that showed no pulmonary embolism or infiltrate. He was febrile. He was found to have a right thigh bruise and cellulitis. He has been on vancomycin and the redness and swelling have resolved. Still has some bruising. His fever is gone. His knee pain has continued to improve, the range of motion is improving as well. He has no pain with weight bearing. PAST MEDICAL HISTORY: None other than osteoarthritis. PAST SURGICAL HISTORY: Status post left knee arthroplasty. ALLERGIES: No known drug allergies. MEDICATIONS: 1. Tylenol. 2. Eliquis. 3. Docusate. 4. Vancomycin. SOCIAL HISTORY: Lives in [place]. Nonsmoker. FAMILY HISTORY: No recurrent infections. REVIEW OF SYSTEMS: All negative except as noted above, 14-point review. PHYSICAL EXAM: Vital Signs: Temperature 37, heart rate 80, respiratory rate 17 , blood pressure 133/60, oxygen saturation 100% on room air. In general, he is awake, not in distress. Neurologic: He is oriented x3. Follows all commands. Moves all extremities. HEENT: There is no conjunctival hemorrhage. Oropharynx without lesions. Neck is supple without mass. Heart is regular rate and rhythm without murmurs, rubs or gallops. Lungs are clear to auscultation bilaterally. Abdomen: Soft, nontender, nondistended. There are bowel sounds present. Skin: There is no splinter hemorrhage. There is no rash. There is medial left thigh edema, slight warmth and ecchymosis without erythema. Musculoskeletal: No spine tenderness to palpation. Left knee incision is intact. There is no erythema. There is a small effusion. There is no tenderness to palpation. LABORATORY DATA: White blood cell count 7, down from 10, hemoglobin 8, platelets 184, creatinine 0.8, CRP on admission was 236. Please see impressions and recommendations outlined above. Thanks for asking me to see Mr. Feng in consultation. [id number] #: [id number] THOM
--- NOTE | 2018-04-13 13:51 | PN ---
Progress Note - Progress Note Date of Service: 04/13/18 SOAP: Subjective: []Pt seen and examined at bedside. He feels well without feeling of fever, chills, CP, SOB, dizziness. Objective: []General: NAD LLE: Left knee incision CDI without surrounding erythema or discharge. + large hematoma of medial/posterior thigh that is purple in color with yellow surrounding without any surrounding erythema. Thigh is compressible. Distal escobedo lacerations appear to be healing well without erythema or discharge Calves supple and nontender without erythema, edema or palpable cords Assessment: Improving cellulitis Plan: WBAT PT/OT Daily DSD changes Okay for transition to PO abx as guided by ID: Clindamycin 300 mg PO TID for 5 days and discharge. Remains post op DVT/PE risk, needs to remain on prophylaxis the remainder of 30 days post op when recommended to resume per medicine Vital Signs Temp 98.6 F 04/13/18 07:47 Pulse 79 04/13/18 07:47 Resp 16 04/13/18 08:00 BP 133/60 04/13/18 07:47 Pulse Ox 100 04/13/18 07:47 Intake & Output 04/12/18 04/13/18 04/13/18 18:59 06:59 18:59 Intake Total 2508 960 610 Output Total 250 1150 440 Balance 2258 -190 170 Intake: IV Fluids 1458 ABX - VANCOMYCIN 250 NS 1208 IVPB 270 ABX - VANCOMYCIN 270 Oral 1050 690 610 Output: Urine 250 1150 440 Other: Estimated Void Medium Medium # Bowel Movements 0 Estimated Stool Amount Medium Laboratory Last Values WBC 7.6 10^3/ul (3.5-10.8) 04/13/18 04:47 RBC 2.84 10^6/ul (4.00-5.40) L 04/13/18 04:47 Hgb 8.7 g/dl (14.0-18.0) L 04/13/18 04:47 Hct 26 % (42-52) L 04/13/18 04:47 MCV 91 fL (80-94) 04/13/18 04:47 MCH 31 pg (27-31) 04/13/18 04:47 MCHC 34 g/dl (31-36) 04/13/18 04:47 RDW 13 % (10.5-15) 04/13/18 04:47 Plt Count 184 10^3/ul (150-450) 04/13/18 04:47 MPV 8.8 fL (7.4-10.4) 04/13/18 04:47 Neut % (Auto) 68.0 % 04/13/18 04:47 Lymph % (Auto) 14.4 % 04/13/18 04:47 Evans % (Auto) 11.8 % 04/13/18 04:47 Eos % (Auto) 5.1 % 04/13/18 04:47 Baso % (Auto) 0.7 % 04/13/18 04:47 Absolute Neuts (auto) 5.2 10^3/ul (1.5-7.7) 04/13/18 04:47 Absolute Lymphs (auto) 1.1 10^3/ul (1.0-4.8) 04/13/18 04:47 Absolute Monos (auto) 0.9 10^3/ul (0-0.8) H 04/13/18 04:47 Absolute Eos (auto) 0.4 10^3/ul (0-0.6) 04/13/18 04:47 Absolute Basos (auto) 0.1 10^3/ul (0-0.2) 04/13/18 04:47 Absolute Nucleated RBC 0 10^3/ul 04/13/18 04:47 Nucleated RBC % 0 04/13/18 04:47 INR (Anticoag Therapy) 1.05 (0.77-1.02) H 04/11/18 15:41 APTT 29.3 seconds (26.0-36.3) 04/11/18 15:41 Sodium 141 mmol/L (135-145) 04/12/18 06:56 Potassium 4.0 mmol/L (3.5-5.0) 04/12/18 06:56 Chloride 107 mmol/L (101-111) 04/12/18 06:56 Carbon Dioxide 28 mmol/L (22-32) 04/12/18 06:56 Anion Gap 6 mmol/L (2-11) 04/12/18 06:56 BUN 10 mg/dL (6-24) 04/13/18 04:47 Creatinine 0.93 mg/dL (0.67-1.17) 04/13/18 04:47 Est GFR ( Amer) 96.9 (>60) 04/13/18 04:47 Est GFR (Non-Af Amer) 80.1 (>60) 04/13/18 04:47 BUN/Creatinine Ratio 11.8 (8-20) 04/12/18 06:56 Glucose 102 mg/dL (70-100) H 04/12/18 06:56 Lactic Acid 0.7 mmol/L (0.5-2.0) 04/11/18 20:28 Calcium 8.3 mg/dL (8.6-10.3) L 04/12/18 06:56 Total Bilirubin 0.60 mg/dL (0.2-1.0) 04/11/18 15:41 AST 34 U/L (13-39) 04/11/18 15:41 ALT 18 U/L (7-52) 04/11/18 15:41 Alkaline Phosphatase 44 U/L (34-104) 04/11/18 15:41 Total Creatine Kinase 720 U/L (10-223) H 04/11/18 15:41 CK-MB (CK-2) 3.1 ng/mL (0.6-6.3) 04/11/18 15:41 Troponin I 0.00 ng/mL (<0.04) 04/11/18 15:41 C-Reactive Protein 236.57 mg/L (<8.01) H 04/11/18 15:41 B-Natriuretic Peptide 67 pg/mL (<=100) 04/11/18 15:41 Total Protein 6.3 g/dL (6.4-8.9) L 04/11/18 15:41 Albumin 3.7 g/dL (3.2-5.2) 04/11/18 15:41 Globulin 2.6 g/dL (2-4) 04/11/18 15:41 Albumin/Globulin Ratio 1.4 (1-3) 04/11/18 15:41 Urine Color Straw 04/11/18 16:30 Urine Appearance Clear 04/11/18 16:30 Urine pH 8.0 (5-9) 04/11/18 16:30 Ur Specific [place] 1.023 (1.010-1.030) 04/11/18 16:30 Urine Protein Negative (Negative) 04/11/18 16:30 Urine Ketones Negative (Negative) 04/11/18 16:30 Urine Blood Negative (Negative) 04/11/18 16:30 Urine Nitrate Negative (Negative) 04/11/18 16:30 Urine Bilirubin Negative (Negative) 04/11/18 16:30 Urine Urobilinogen Negative (Negative) 04/11/18 16:30 Ur Leukocyte Esterase Negative (Negative) 04/11/18 16:30 Urine Glucose Negative (Negative) 04/11/18 16:30 Vancomycin Trough 11.9 mcg/mL 04/13/18 04:47
[2018-04-13 14:02] VITALS: BP 140/61
--- NOTE | 2018-04-14 00:02 | DS ---
CC: Dr. Vallejo; Dr. Jain; Dr. Whitten * DISCHARGE SUMMARY: DATE OF ADMISSION: 04/11/18 DATE OF DISCHARGE: 04/13/18 PRIMARY CARE PROVIDER: Dr. Vallejo. ORTHOPEDIST: Dr. Jain. CONTRACT LOADER INFECTIONS DISEASE SPECIALIST: Dr. Whitten. DISCHARGE DIAGNOSES: 1. Left thigh hematoma. 2. Possible left knee cellulitis. SECONDARY DIAGNOSIS: Osteoarthritis. MEDICATION LIST: 1. Acetaminophen 975 mg p.o. q.8 hours. 2. Eliquis 2.5 mg p.o. b.i.d. 3. Colace 100 mg p.o. b.i.d. 4. Gaviscon 1 tablet chewable b.i.d. as needed for heartburn. New Medications: 1. Clindamycin 300 mg p.o. q.8 hours for 5 days. HOSPITAL COURSE: Mr. Feng is a 72-year-old male with past medical history as stated above, who was initially admitted to [facility] on 04/08/18 when he underwent a left total knee arthroplasty with Dr. Jain. He returned to the emergency room on 04/11/18 with complaints of shortness of breath and the patient had also noted that his left knee was red, swollen, and the redness had been tracking upwards to the thigh region as well. For more details about this presentation, I refer you to his history and physical. The emergency room had contacted Dr. Brown, and he initially had recommended fluid should be aspirated, but ultrasound showed there was no fluid for aspiration and the impression was that the patient had only superficial cellulitis. He was admitted to the medical floor and he was started on vancomycin. The patient had a CTA of the chest that showed no evidence for pulmonary embolism, only multiple hyperdense hepatic lesions that likely represent cysts, and the patient could have an outpatient hepatic ultrasound for further definition. The patient was seen in consultation by orthopedist (Dr. Brown), and his impression was that the patient's thigh hematoma was driving his symptoms as the apixaban that he was taking for DVT prophylaxis after surgery is known to cause additional bleeding. He felt that this was the balance between more effective DVT/PE prophylaxis and other problems generated by the anticoagulation. He felt that the warmth and tenderness were typical for a total knee arthroplasty. The patient had the left lower extremity Doppler that showed no evidence for DVT. The patient had progressive improvement of his pain, edema, and erythema. He had no further fever and he was seen in consultation by Infectious Disease (Dr. Whitten). His impression was that the patient had a left thigh hematoma with some medial thigh swelling, purplish discoloration, and inflammatory response, improving with antiinflammatories and antibiotics. His recommendation was to discontinue IV vancomycin to complete 5 days of clindamycin and to follow up with him next week. The patient was educated that if he has worsening erythema, pain, or swelling in the knee, he should return to the hospital and Dr. Whitten will follow him up as outpatient. At this point, it is not really clear to me if the patient had left knee cellulitis. The changes I see are compatible with the postop state and I think his symptoms of pain and even the fever could be secondary to this large left thigh hematoma. So, I believe the patient had SIRS with tachycardia and fever, but not necessarily sepsis because it is not really clear to me that he had a skin infection. In any case, we will continue his treatment with clindamycin and he will be followed as outpatient with Dr. Whitten. I also questioned his initial lactic acid of 5 as the patient did not have vital signs that would justify the level of hypoperfusion and also normalized to 0.7 in less than 6 hours, so I do not think this initial result is accurate. As stated above, I do not think this patient had sepsis as it is not really clear if he truly had an infection on admission. I believe this was mostly inflammatory secondary to his large hematoma. The patient is medically stable for discharge home today to follow up with Dr. Whitten as an outpatient. PHYSICAL EXAMINATION: Vital Signs: Temperature 98.6, heart rate 76, respiratory rate 17, oxygen saturation is 100% on room air, blood pressure is 140/61. General: The patient is a pleasant elderly gentleman, sitting up in a recliner, in no acute distress. CVS: Normal S1, S2. Regular rate and rhythm. Chest: Breath sounds present bilaterally with no added sounds. Extremities: The patient has a clean incision to his left knee with sutures in place, no open areas, no drainage. There is mild erythema and warmth, but the patient states that the edema is improved. There is a large hematoma extending from the medial aspect of his thigh up to his groin area, but the thigh is compressible. He has good pulses and good capillary refill. Neuro: He is alert and oriented x3, able to move all 4 extremities. DIET: Regular diet. ACTIVITIES: As tolerated. DISPOSITION: To home. STATUS WHILE IN THE HOSPITAL: Observation. CONDITION ON DISCHARGE: Fair. Please keep in mind, this is a summarized version of this patient's hospital stay. If you need more information, please feel free to call me at [phone] or please obtain the full medical records. TIME SPENT: Approximately 45 minutes was spent to complete this discharge. [id number]/CPS #: [id number] [id number]
== END 2018-04-13 13:40 | disposition home or self-care (01) | DRG 603 ==
LOC: ED 15:10 → SSU 20:27
PROVIDERS: ADMIT Internal Medicine; ATTEND Internal Medicine
DX: L03.116 Cellulitis of left lower limb (principal); E87.2 Acidosis; E87.5 Hyperkalemia; K76.89 Other specified diseases of liver; D64.9 Anemia, unspecified; M79.81 Nontraumatic hematoma of soft tissue; Z96.652 Presence of left artificial knee joint; Z79.1 Long term (current) use of non-steroidal anti-inflammatories (NSAID); Z79.899 Other long term (current) drug therapy
CPT/HCPCS: 36415; 71275; 80048; 80053; 80202; 81003; 82550; 82553; 82565; 83605; 83880; 84132; 84484; 84520; 85025; 85610; 85730; 86140; 87040; 93005; 99283; A9270-GY; G8978-GP-CI; G8979-GP-CI; G8980-GP-CI; J0696; J2543; J3370; Q9967

== ENCOUNTER 2019-03-22 03:48 | Emergency (ER) | payer BC ==
--- NOTE | 2019-03-22 04:23 | ED ---
Hypertension - HPI Summary HPI Summary: The patient is a 73 y/o male presenting to [facility] accompanied by with a chief complaint of elevated blood pressure this morning. He reports that he woke up early this morning feeling unwell with fatigue and general weakness, warranting him to check his blood pressure to find that it was higher than usual. He notes that he has been experiencing high blood pressure since prior to 02/24/2019 with gradual worsening and a reading of SBP 206 mmHg. He notes a pressure sensation in the head, but he has otherwise been feeling well prior to now. He denies any fevers, CP, SOB, dizziness, nausea, vomiting, diarrhea, or cough. He states that this is similar to when he had his left knee replaced and was unsure if there was an infection. No previous diagnosis of HTN. Last stress test six years ago with benign findings after severe GERD episode. PMHx: anemia , hiatal hernia. FHx: [place] brother age 68. Nonsmoker, daily EtOH, no substance use. Medications reviewed. Allergies noted. - History of Current Complaint Chief Complaint: EDHypertension Stated Complaint: HIGH BP PER PT Hx Obtained From: Patient Onset/Duration: Started Weeks Ago - prior to 02/24/2019, Still Present, Worse Since - this morning Timing: Intermittent Aggravating Factor(s): Nothing Alleviating Factor(s): Nothing Associated Signs & Symptoms: Weakness - generalized, Other: - fatigue, head pressure; Negative: fever, CP, SOB, cough, dizziness, nausea, vomiting, diarrhea Related Hx: Similar Episode - post-surgical changes - Allergies/Home Medications Allergies/Adverse Reactions: Allergies Allergy/AdvReac Type Severity Reaction Status Date / Time No Known Allergies Allergy Verified 03/22/19 03:51 PMH/Surg Hx/FS Hx/Imm Hx Endocrine/Hematology History: Denies: Hx Diabetes Cardiovascular History: Denies: Hx Hypertension, Hx Pacemaker/ICD Respiratory History: Denies: Hx Asthma GI History: Reports: Hx Hiatal Hernia History: Denies: Hx Renal Disease Musculoskeletal History: Reports: Hx Arthritis - osteoarthritis Sensory History: Reports: Hx Cataracts, Hx Contacts or Glasses Denies: Hx Eye Injury, Hx Hearing Aid Opthamlomology History: Reports: Hx Cataracts, Hx Contacts or Glasses Denies: Hx Eye Injury Psychiatric History: Denies: Hx Panic Disorder - Cancer History Hx Chemotherapy: No - Surgical History Surgical History: Yes Surgery Procedure, Year, and Place: LEFT SHOULDER RTC REPAIR, ARTHROSCOPY LEFT KNEE X 2 1990 , 2000, T&A as a baby, CATARACT REPAIR BILATERALLY 2011 Hx Anesthesia Reactions: No Infectious Disease History: No Infectious Disease History: Denies: Traveled Outside the [place] in Last 30 Days - Family History Known Family History: Positive: Cardiac Disease - [place] brother age 68 Negative: Blood Disorder - Social History Alcohol Use: Daily Alcohol Amount: 2 beers/day Hx Substance Use: No Substance Use Type: Reports: None Hx Tobacco Use: No Smoking Status (MU): Never Smoked Tobacco - Additional Comments History Additional Comments: anemia, GERD Review of Systems - ROS Summary Review of Systems Summary: Home Medications Medication Instructions Recorded Confirmed Type Omeprazole 40 mg PO DAILY 05/20/18 03/22/19 History Positive: Fatigue. Negative: Fever Positive: Other - elevated BP. Negative: Chest Pain Negative: Shortness Of Breath, Cough Negative: Vomiting, Diarrhea, Nausea Neurological: Other - Negative: dizziness Positive: Headache - pressure, Weakness - generalized All Other Systems Reviewed And Are Negative: Yes Physical Exam - Summary Physical Exam Summary: General: Well-developed, Well-nourished elderly male. No acute distress. HEENT: Normocephalic, Atraumatic. Eyes: Conjuctiva normal, PERRL. Oropharynx: Clear, mucous membranes moist, (-) exudates. Neck: Soft, FROM, (-) lymphadenopathy, (-) thyromegaly, (-) JVD. Cardiovascular: Normal sinus rhythm, (-) murmur. Lungs: Clear to auscultation bilaterally (-) wheezes, (-) rales, (-) rhonchi. Abdomen: Soft, non-tender, non-distended, (-) organomegaly, normal bowel sounds. Back: (-) CVA tenderness Extremities: No edema. Skin: Warm, dry, (-) rash. Neuro: Alert and oriented x3, no focal deficits. Psychiatric: Slightly anxious appearing but otherwise mood normal, affect normal. Triage Information Reviewed: Yes Vital Signs On Initial Exam: Initial Vitals Temp Pulse Resp BP Pulse Ox 98.5 F 86 15 183/116 98 03/22/19 03:49 03/22/19 03:49 03/22/19 03:49 03/22/19 03:49 03/22/19 03:49 Vital Signs Reviewed: Yes Procedures - Sedation Patient Received Moderate/Deep Sedation with Procedure: No Diagnostics - Vital Signs Vital Signs Temp Pulse Resp BP Pulse Ox 03/22/19 04:15 180/90 03/22/19 04:01 85 97 03/22/19 03:49 98.5 F 86 15 183/116 98 - Laboratory Result Diagrams: 03/22/19 04:30 03/22/19 04:30 Lab Statement: Any lab studies that have been ordered have been reviewed, and results considered in the medical decision making process. - Radiology CXR Radiology Interpretation Completed By: ED Physician Summary of Radiographic Findings: No infiltrate. No pleural effusion. ED physician has reviewed and interpreted this imaging report. Pending official read. - EKG 0427 Cardiac Rate: NL - 67 bpm EKG Rhythm: Sinus Rhythm Summary of EKG Findings: EKG at 0427 reveals normal sinus rhythm with rate of 67 BPM, no acute changes, no ischemic changes. This EKG was reviewed and interpreted by Dr. Rider. Re-Evaluation - Re-Evaluation First Eval Re-Evaluation Time: 04:15 Comment: Nurse reports manual BP reading of 180/90 mmHg. Second Eval Re-Evaluation Time: 05:55 Comment: I have discussed results with the patient. Discussed symptoms that warrant immediate return to ED. Hypertension Course/Dx - Course Course Of Treatment: 73-year-old male presents from home by private vehicle with elevated blood pressures. He states he woke up with a melanoma and not feeling well. His has high blood pressure and a cuff so she checked his blood pressure. He states his blood pressure has been creeping up lately. Tonight however it was over 200. He became very concerned. He states he has had some head pressure. Feels like he is breathing more shallow. Denies any chest pain or shortness of breath and general. This continued riding the bicycle for 1 hour every other day. Workup essentially negative. Of note manual blood pressure is much lower than automatic cuff. Patient strongly advised to follow up with PCP. Recheck blood pressure. Follow-up sooner for any worsening symptoms. - Diagnoses Provider Diagnoses: Hypertension Discharge ED - Sign-Out/Discharge Documenting (check all that apply): Patient Departure - Patient will be discharged home. - Discharge Plan Condition: Stable Disposition: HOME Patient Education Materials: Hypertension (ED) Referrals: Matt Love MD [Primary Care Provider] - 3 Days Additional Instructions: Please follow up with your primary care physician within three days. Please return to ED for any new or worsening symptoms. - Billing Disposition and Condition Condition: STABLE Disposition: Home - Attestation Statements Document Initiated by Payal: Yes Documenting Scribe: Sonia Martell Provider For Whom Payal is Documenting (Include Credential): Dr. Leah Rider MD Scribe Attestation: ISonia scribed for Dr. Leah Rider MD on 03/22/19 at 0611. Scribe Documentation Reviewed: Yes Provider Attestation: The documentation as recorded by the Sonia srinivasan accurately reflects the service I personally performed and the decisions made by me, Dr. Leah Rider MD Status of Scribe Document: Viewed
[2019-03-22 04:41] LABS: ABS Basophils 0.1 10^3/ul (0-0.2); ABS Eosinophils 0.3 10^3/ul (0-0.6); ABS Lymphocytes 1.3 10^3/ul (1.0-4.8); ABS Monocytes 1.1 10^3/ul (0-0.8); Eosinophil % 3.4 %; Hematocrit 40 % (42-52); Hemoglobin 14.1 g/dL (14.0-18.0); Lymphocyte % 13.1 %; Mean Corpuscular HGB Conc 36 g/dL (31-36); Mean Corpuscular Hemoglobin 31 pg (27-31); Mean Corpuscular Volume 88 fL (80-94); Mean Platelet Volume 9.9 fL (7.4-10.4); Platelet Count 175 10^3/uL (150-450); Red Blood Count 4.54 10^6 /uL (4.18-5.48); Red Cell Distribution Width 13 % (10-15); White Blood Count 9.7 10^3/uL (3.5-10.8)
[2019-03-22 04:51] LABS: INR 1.06 (0.82-1.09)
[2019-03-22 04:56] LABS: Albumin/Globulin Ratio 1.6 (1-3); BUN/Creatinine Ratio 17.9 (8-20); Calcium 8.7 mg/dL (8.6-10.3); EGFR African American 83.1 (>60); EGFR Non-African American 68.7 (>60); Globulin 2.5 g/dL (2-4); Potassium 3.9 mmol/L (3.5-5.0); Total Bilirubin 0.5 mg/dL (0.2-1.0); Total Protein 6.5 g/dL (6.4-8.9)
[2019-03-22 04:58] LABS: Troponin I 0.01 ng/mL (<0.03)
[2019-03-22 05:17] LABS: TSH (Thyroid Stimulating Horm) 6.38 mcIU/mL (0.34-5.60)
[2019-03-22 05:39] LABS: Urine Appearance Clear; Urine Bilirubin Negative (Negative); Urine Blood Negative (Negative); Urine Color Yellow; Urine Glucose Negative (Negative); Urine Ketones Negative (Negative); Urine Nitrite Negative (Negative); Urine Protein Negative (Negative); Urine Specific Gravity 1.015 (1.010-1.030); Urine Urobilinogen Negative (Negative)
[2019-03-22 05:59] VITALS: BP 172/91
== END 2019-03-22 05:59 | disposition home or self-care (01) ==
LOC: ED 03:48
DX: I10 Essential (primary) hypertension (principal); R53.1 Weakness; R53.83 Other fatigue; K21.9 Gastro-esophageal reflux disease without esophagitis; Z96.652 Presence of left artificial knee joint; Z82.49 Family history of ischemic heart disease and other diseases of the circulatory system
CPT/HCPCS: 36415; 71045; 80053; 81003; 83605; 83880; 84443; 84484; 85025; 85610; 93005; 99283